=== PATIENT | female | born 1955 ===

== ENCOUNTER 2020-01-16 08:14 | Outpatient (REF) | payer OTHER, SELFPAY ==
--- NOTE | 2020-01-16 | MM_ITS ---
EXAMINATION: MM SCREENING DIGITAL BREAST TOMOSYNTHESIS, BILATERAL CLINICAL INFORMATION: Screening. Asymptomatic. Family history breast cancer in paternal grandmother. The lifetime risk of breast cancer based on the Tyrer-Cuzick Model is 6%. COMPARISON: Mammography: 01/10/2019, 10/30/2008 TECHNIQUE: Digital breast tomosynthesis is performed in both the craniocaudal and mediolateral oblique views along with computer-aided detection (CAD). Synthesized 2D images are generated from the tomosynthesis. FINDINGS: There are scattered areas of fibroglandular density (ACR BI-RADS breast composition Category b). There are no significant masses, abnormal calcifications, or other abnormalities. Parenchymal pattern is similar to prior studies. No significant changes. IMPRESSION: No mammographic evidence of malignancy. ASSESSMENT: BI-RADS 1: Negative RECOMMENDATION: Routine annual mammography screening. This patient's information was entered into a reminder system with a target due date for their next mammogram.
== END 2020-01-16 08:15 | disposition home or self-care (01) ==
LOC: HO.MAMMO 08:14
PROVIDERS: PCP Internal Medicine; Visit Provider Internal Medicine
DX: Z12.31 Encounter for screening mammogram for malignant neoplasm of breast (principal)
CPT/HCPCS: 77063; 77067

== ENCOUNTER 2020-01-26 08:04 | Outpatient (REF) | payer OTHER, SELFPAY ==
--- NOTE | 2020-01-26 08:08 | MM_ITS ---
EXAMINATION: BONE DENSITOMETRY CLINICAL INDICATION: Menopausal state. COMPARISON: This is the patient's baseline examination. TECHNIQUE: Using a Innov[employer] DXA System (software version: 13.1) manufactured by [employer], dual-energy x-ray absorptiometry was performed of the lumbar spine and left hip. The images are of good technical quality. Summary results are attached. FINDINGS: AP SPINE L1-L4: BMD 0.934 g/cm2, Z-score -0.4, T-score -2.1, osteopenia. LEFT FEMUR, NECK: BMD 0.682 g/cm2, Z-score -1.0, T-score -2.6, osteoporosis. LEFT FEMUR, TOTAL: BMD 0.756 g/cm2, Z-score -0.7, T-score -2.0, osteopenia. IDENTIFIED RISK FACTORS: Height loss. Secondary osteoporosis (early menopause). Hysterectomy. HISTORY OF FRACTURE: None listed. MEDICATIONS: None listed. MM/XR DEXA axial skeleton IMPRESSION: 1. DIAGNOSIS: Osteoporosis based on the lowest T-score value of -2.6 in the femoral neck applying World Health Organization criteria. 2. 10-YEAR FRACTURE RISK PREDICTION, FRAX: Major osteoporotic fracture (clinical spine, forearm, hip or shoulder) 13.5%. Hip fracture 3.0%. 3. Treatment Recommendations: NOF guidelines recommend consideration for treatment in postmenopausal women and men age 50 and older presenting with the following: -A hip or vertebral (clinical or morphometric) fracture. -T-score less than or equal to -2.5 at the femoral neck or spine after appropriate evaluation to exclude secondary causes. -Low bone mass at the hip or spine and a 10-year fracture probability by FRAX of greater than or equal to 3% for hip fracture or greater than or equal to 20% for major osteoporotic fracture based on the [place] adapted WHO algorithm. 4. Other Recommendations: All treatment decisions require clinical judgment and consideration of individual patient factors, including patient preferences, comorbidities, previous drug use, risk factors not captured in the FRAX model (e.g. frailty, falls, vitamin D deficiency, increased bone turnover, interval significant decline in bone density) and possible under or overestimation of fracture risk by FRAX. Additional medical evaluation for secondary cause of low bone mineral density may be appropriate. FUTURE SCAN RECOMMENDATION: People with diagnosed cases of osteoporosis or at high risk for fracture should have regular bone mineral density tests. For patients eligible for Medicare, routine testing is allowed once every 2 years. The testing frequency can be increased to one year for patients who have rapidly progressing disease, those who are receiving or discontinuing medical therapy to restore bone mass, or have additional risk factors.
== END 2020-01-26 08:05 | disposition home or self-care (01) ==
LOC: HO.MAMMO 08:04
PROVIDERS: PCP Internal Medicine; Visit Provider Internal Medicine
DX: Z78.0 Asymptomatic menopausal state (principal)
CPT/HCPCS: 77080

== ENCOUNTER 2020-11-22 12:05 | Outpatient (REF) | payer MEDICARE, MEDICAID, SELFPAY ==
[2020-11-22 14:05] LABS: Hematocrit 34.5 % (37-47); Mean Corpuscular HGB Conc 31.9 g/dl (31.0-35.0); Mean Corpuscular Volume 87.8 fL (80-98); Mean Platelet Volume 9.4 fL (9.4-12.3); Platelet Count 401 X10*3/uL (160-400); Red Blood Count 3.93 X10*6/uL (4.20-5.50); White Blood Count 12.3 X10*3/uL (4.8-10.8)
[2020-11-22 14:26] LABS: Alanine Aminotransferase 11 U/L (0-31); Albumin Level 3.5 g/dL (3.5-5.0); Alkaline Phosphatase 139 U/L (39-117); Anion Gap 12 (12-20); Aspartate Amino Transferase 15 U/L (5-31); Bilirubin Total 0.4 mg/dL (0.0-1.0); Blood Urea Nitrogen 5 mg/dL (9-16); Calcium 8.5 mg/dL (8.4-10.2); Carbon Dioxide 29 mmol/L (22-29); Chloride 102 mmol/L (96-108); Estimated Glomerular Filt Rate > 60; Glucose Random 88 mg/dL (60-115); Potassium 3.5 mmol/L (3.3-5.1); Sodium 139 mmol/L (135-145); Total Protein 6.2 g/dL (6.5-8.0)
[2020-11-22 14:46] LABS: Erythrocyte Sedimentation Rate 17 MM/HR (0-20)
[2020-11-22 14:50] LABS: CDiff Gene PCR NEGATIVE (Negative)
== END 2020-11-22 12:06 | disposition home or self-care (01) ==
LOC: HO.HMGCLDS 12:05
PROVIDERS: Hospitalist; PCP Internal Medicine; Visit Provider Internal Medicine
DX: K21.9 Gastro-esophageal reflux disease without esophagitis (principal); K52.1 Toxic gastroenteritis and colitis; T36.95XA Adverse effect of unspecified systemic antibiotic, initial encounter
CPT/HCPCS: 36415; 80053; 85027; 85652; 87493

== ENCOUNTER 2020-12-20 08:39 | Outpatient (REF) | payer MEDICARE, MEDICAID, SELFPAY ==
[2020-12-20 12:04] LABS: Cholesterol 144 mg/dL; HDL Cholesterol 62 mg/dL; LDL Cholesterol Calculated 62 mg/dl; Triglycerides 102 mg/dL
== END 2020-12-20 08:40 | disposition home or self-care (01) ==
LOC: HO.HMGCLDS 08:39
PROVIDERS: PCP Internal Medicine; Visit Provider Internal Medicine
DX: Z00.00 Encounter for general adult medical examination without abnormal findings (principal)
CPT/HCPCS: 36415; 80061; 84443

== ENCOUNTER 2021-01-30 11:00 | Outpatient (RCR) | payer MEDICARE, MEDICAID, SELFPAY | END 2021-01-30 13:14 | disposition home or self-care (01) | LOC: HO.PTCHIC 11:00 | PROVIDERS: PCP Internal Medicine; Visit Provider Physician Assistant | DX: Z96.651 Presence of right artificial knee joint (principal) | CPT/HCPCS: 97110; 97112; 97140; 97161 ==

== ENCOUNTER 2021-11-28 15:00 | Outpatient (RCR) | payer MEDICARE, MEDICAID, SELFPAY ==
--- NOTE | 2021-11-28 16:07 | MHC.PT.DC ---
[facility] [place] Office [place] Office [place] Office [address] Pavel Ramirez [address] [phone] F: [phone] F: [phone] F: [phone] F: [phone] Physical Therapy Discharge Report Diagnosis: This is a 66 yo female presenting to skilled PT with a script for R foot/ankle pain, plantar fasciitis Date of Surgery: Date of Evaluation: 10/11/21 Date of Discharge: 11/28/21 Treatments to Date: 12 Cancellations to Date: 0 No Shows to Date: 0 Discharge Status: Achieved Goals Improved Function Independent with HEP Discharge Summary: Patient is doing well, demos improved ROM and strength. She demos improved pain, improved gait pattern and has invested in a good new pair of shoes. She has a thorough HEP to continue on her own and is I in her program. She is appropriate for DC at this time. Educated to call office if anything changes. Electronically signed by: Jazmine Naylor PT Please sign and return to therapist. Thank you for your referral.
== END 2021-11-28 16:07 | disposition home or self-care (01) ==
LOC: HO.PTCHIC 15:00
PROVIDERS: PCP Nurse Practitioner Family; Visit Provider Orthopaedic Surgery
DX: M79.671 Pain in right foot (principal); M72.2 Plantar fascial fibromatosis
CPT/HCPCS: 97035; 97110; 97140; 97161; 97162

== ENCOUNTER 2022-10-27 09:11 | Outpatient (AMB) | payer MEDICARE, SELFPAY ==
--- NOTE | 2022-10-27 09:36 | MHC.PC.OV ---
Vital Signs 10/27/22 09:39 Height 5 ft Weight 176 lb 2 oz BMI 34.4 BP 132/88 Blood Pressure Location Rt brachial Position Sitting Pulse 59 Pulse Source Pulse Oximeter Pulse Oximetry (%) 95 Oxygen Delivery Method Room Air Intake Visit Reasons: Ear ache, sore throat, congestion, cough Allergies No Known Allergies [No Known Allergies*] Allergy (Verified 10/27/22 09:37) Medication List - Last Reconciled 10/27/22 by Sandy Storm MD albuterol sulfate 90 mcg/actuation 2 puffs inhalation Q6H PRN amoxicillin-pot clavulanate 875-125 mg 1 tab PO BID benzonatate 100 mg PO TID biotin 10 mg PO DAILY omeprazole 20 mg PO BID Tobacco use date assessed: 10/27/22 Fall risk assessment: No Falls in past year Last assessed Fall Risk: 10/27/22 Dental Screening Dental Screen Date: 10/27/22 Did you have a dental visit in the last 12 months?: Yes Did you have a dental problem in the last 6 months where you did not have access to dental care?: No Was dental information given to patient?: No HPI Ear ache, sore throat, congestion, cough HPI Details Pt c/o chest congestion, intermittent wheezing, nonproductive cough, sore throat and right ear pain for 2 weeks. Patient denies fever chills shortness of breath. [facility] Medical History (Updated 10/27/22 @ 10:14 by Sandy Storm MD) Annual physical exam Chronic back pain Mild intermittent asthma without complication Skin cancer Surgical History H/O colonoscopy S/P knee replacement Family History Father No problems noted. Mother Diabetes Social History Housing: House Patient Tobacco Use Status: Never used Tobacco e-Cigarette/Vaping Use: Never Used Current occupational status: retired Cognitive needs: No Hearing needs: No Vision needs: No Questionnaire Thrive Questionnaire Date Thrive assessed: 12/23/21 AUDIT C Alcohol Use Questionnaire (AUDIT-C) 1. How often do you have a drink containing alcohol?: Never 3. How often do you have six or more drinks on one occasion?: Never Total Score: 0 Score Reviewed/Action Taken: Yes MAJO-7 AMB Questionnaire MAJO-7 Date MAJO - 7 assessed: 12/23/21 Source: Developed by Drs. Wicho Mendez, Tessa Dukes, Tim Aburto and colleagues, with an educational hermilo from [employer]. Review of Systems Const All systems reviewed & are unremarkable except as noted in HPI and below Eyes Reports no additional complaints ENT Reports no additional complaints Card Reports no additional complaints Resp Reports no additional complaints GI Reports no additional complaints Physical exam (Primary Care) Vital Signs: Last Vital Signs Pulse 59 10/27/22 09:39 BP 132/88 10/27/22 09:39 Pulse Ox 95 10/27/22 09:39 Oxygen Delivery Method Room Air 10/27/22 09:39 BMI result Body Mass Index 34.4 Tobacco/Smoking Status: Tobacco use Status Tobacco use date assessed 10/27/22 10/27/22 09:39 Patient Tobacco Use Status Never used Tobacco 10/27/22 09:39 e-Cigarette/Vaping Use Never Used 10/27/22 09:39 Thrive Assessment: Date of Thrive Assessment Date Thrive assessed 12/23/21 10/27/22 09:39 Const General: well developed HENMT Head: Yes normal to inspection Ears: hearing grossly normal bilaterally and TM's normal bilaterally Face and sinus: Yes normal facial exam Throat: Yes postnasal drainage Eyes General: appearance normal, both eyes and all related structures Neck Neck: Yes lymphadenopathy (R submandibular) Resp Effort & Inspection: normal respiratory effort Auscultation: wheezes and diminished lung sounds Cardio Rhythm: regular rhythm Heart sounds: S1 normal heart sound present Assessment and Plan Assessment & Plan (1) Annual physical exam: Code(s): Z00.00 - Encounter for general adult medical examination without abnormal findings Plan: schedule PE in Nov (2) Chronic diarrhea: Comment: f/u GI Dr. Mcdowell , negative colonoscopy 12/19 Code(s): K52.9 - Noninfective gastroenteritis and colitis, unspecified (3) GERD (gastroesophageal reflux disease): Code(s): K21.9 - Gastro-esophageal reflux disease without esophagitis (4) Bronchitis: Code(s): J40 - Bronchitis, not specified as acute or chronic Plan: Augmentin for 1 week and Tessalon pearls (5) Mild intermittent asthma without complication: Code(s): J45.20 - Mild intermittent asthma, uncomplicated Plan: start Breo and Albuterol prn, f/u in 1 -2 months Orders: Orders Comprehensive [place]. Panel Fast Today K21.9 - Gastro-esophageal reflux disease without esophagitis, K52.9 - Noninfective gastroenteritis and colitis, unspecified, Z00.00 - Encounter for general adult medical examination without abnormal findings Complete Blood Count Auto Diff Today K21.9 - Gastro-esophageal reflux disease without esophagitis, K52.9 - Noninfective gastroenteritis and colitis, unspecified, Z00.00 - Encounter for general adult medical examination without abnormal findings Lipid Panel Today K21.9 - Gastro-esophageal reflux disease without esophagitis, K52.9 - Noninfective gastroenteritis and colitis, unspecified, Z00.00 - Encounter for general adult medical examination without abnormal findings TSH reflex Free T4 Today K21.9 - Gastro-esophageal reflux disease without esophagitis, K52.9 - Noninfective gastroenteritis and colitis, unspecified, Z00.00 - Encounter for general adult medical examination without abnormal findings Vitamin D 25-OH Total Today K21.9 - Gastro-esophageal reflux disease without esophagitis, K52.9 - Noninfective gastroenteritis and colitis, unspecified, Z00.00 - Encounter for general adult medical examination without abnormal findings Medications: New amoxicillin-pot clavulanate 875-125 mg 1 tab PO BID 14 tabs 0RF benzonatate 100 mg PO TID 21 caps 0RF albuterol sulfate 90 mcg/actuation 2 puffs inhalation Q6H PRN 6.7 grams 1RF shortness of breath or wheezing fluticasone furoate-vilanterol 100-25 mcg/dose (Breo Ellipta) 1 inh inhalation DAILY 60 ea 1RF Coding Level of Care Code Est Pt Level 3 (01481) Diagnoses Annual physical exam Z00.00 Chronic diarrhea K52.9 GERD (gastroesophageal reflux disease) K21.9 Bronchitis J40 Mild intermittent asthma without complication J45.20
[2022-10-27 09:39] VITALS: BP 132/88; PULSE 59; O2SAT 95; BMI 34.4
== END 2022-10-27 10:14 | disposition home or self-care (01) ==
PROVIDERS: PCP Internal Medicine; Visit Provider Internal Medicine
DX: K52.9 Noninfective gastroenteritis and colitis, unspecified (principal); K21.9 Gastro-esophageal reflux disease without esophagitis; J40 Bronchitis, not specified as acute or chronic; J45.20 Mild intermittent asthma, uncomplicated
CPT/HCPCS: 99213

== ENCOUNTER 2022-10-27 10:10 | Outpatient (REF) | payer MEDICARE, MEDICAID, SELFPAY ==
[2022-10-27 13:34] LABS: MANUAL DIFF FLAG NO
[2022-10-27 13:53] LABS: Basophils Percent Auto 0.1 % (0-2); Eosinophils Absolute Auto 0.1 X10*3/uL (0.0-0.4); Eosinophils Percent Auto 0.9 % (0-4); Hematocrit 36.7 % (37.0-47.0); Hemoglobin 11.5 g/dl (12.0-16.0); Imm Gran Abs Auto 0.02 X10*3/uL (0.00-0.03); Imm Gran Pct Auto 0.3 % (0.0-0.4); Lymphocytes Absolute Auto 2.8 X10*3/uL (1.2-4.9); Lymphocytes Percent Auto 37.3 % (20-40); Mean Corpuscular HGB Conc 31.3 g/dl (31.0-35.0); Mean Corpuscular Hemoglobin 27.8 pg (27.0-33.0); Mean Corpuscular Volume 88.9 fL (80.0-98.0); Monocytes Absolute Auto 0.6 X10*3/uL (0.1-1.2); Neutrophils Percent Auto 53.4 % (45-73); Platelet Count 455 X10*3/uL (160-400); Red Blood Count 4.13 X10*6/uL (4.20-5.50); Red Cell Distribution Width 14.7 % (11.0-16.0); White Blood Count 7.5 X10*3/uL (4.8-10.8)
[2022-10-27 15:02] LABS: Alanine Aminotransferase 21 U/L (0-31); Albumin Level 3.9 g/dL (3.5-5.0); Alkaline Phosphatase 98 U/L (39-117); Anion Gap 13 (12-20); Aspartate Amino Transferase 21 U/L (5-31); Bilirubin Total 0.5 mg/dL (0.0-1.0); Blood Urea Nitrogen 10 mg/dL (9-16); Calcium 9.5 mg/dL (8.4-10.2); Carbon Dioxide 25 mmol/L (22-29); Chloride 106 mmol/L (96-108); Cholesterol 211 mg/dL; Estimated Glomerular Filt Rate > 60; Glucose Fasting 93 mg/dL (60-99); HDL Cholesterol 80 mg/dL; LDL Cholesterol Calculated 106 mg/dl; Potassium 4.3 mmol/L (3.3-5.1); Sodium 140 mmol/L (135-145); TSH reflex Free T4 3.16 uIU/mL (0.32-4.0); Total Protein 6.8 g/dL (6.5-8.0); Triglycerides 127 mg/dL; Vitamin D 25-OH Total 30.5 ng/mL (>30)
== END 2022-10-27 10:11 | disposition home or self-care (01) ==
LOC: HO.HMGCLDS 10:10
PROVIDERS: PCP Internal Medicine; Visit Provider Internal Medicine
DX: Z00.00 Encounter for general adult medical examination without abnormal findings (principal); K52.9 Noninfective gastroenteritis and colitis, unspecified; K21.9 Gastro-esophageal reflux disease without esophagitis
CPT/HCPCS: 36415; 80053; 80061; 82306; 84443; 85025

== ENCOUNTER 2022-12-16 12:01 | Outpatient (AMB) | payer MEDICARE, SELFPAY ==
--- NOTE | 2022-12-16 12:05 | A.OFFPC_ITS ---
Vital Signs 12/16/22 12:06 Height 5 ft Weight 183 lb BMI 35.7 BP 140/90 H Blood Pressure Location Lt brachial Position Sitting Pulse 70 Pulse Source Pulse Oximeter Pulse Oximetry (%) 97 Oxygen Delivery Method Room Air Intake Visit Reasons: annual PE Allergies No Known Allergies [No Known Allergies*] Allergy (Verified 12/16/22 12:08) Medication List - Last Reconciled 12/16/22 by Sandy Storm MD albuterol sulfate 90 mcg/actuation 2 puffs inhalation Q6H PRN biotin 10 mg PO DAILY cholecalciferol (vitamin D3) 50 mcg PO DAILY fluticasone furoate-vilanterol 100-25 mcg/dose (Breo Ellipta) 1 inh inhalation DAILY omeprazole 20 mg PO BID Tobacco use date assessed: 12/16/22 Fall risk assessment: No Falls in past year Last assessed Fall Risk: 12/16/22 Dental Screening Dental Screen Date: 12/16/22 Did you have a dental visit in the last 12 months?: Yes Did you have a dental problem in the last 6 months where you did not have access to dental care?: No Was dental information given to patient?: Patient has dentist HPI annual PE HPI Details Pt presents for PE. Patient was diagnosed with colitis and follows up with Dr. Jeremias DUGAN. [facility] Medical History (Updated 12/16/22 @ 13:05 by Sandy Storm MD) Skin cancer Chronic back pain Annual physical exam Mild intermittent asthma without complication Surgical History S/P knee replacement H/O colonoscopy Family History Father No problems noted. Mother Diabetes Social History Housing: House Patient Tobacco Use Status: Never used Tobacco e-Cigarette/Vaping Use: Never Used Current occupational status: retired Cognitive needs: No Hearing needs: No Vision needs: No Questionnaire Thrive Questionnaire Date Thrive assessed: 12/23/21 MAJO-7 AMB Questionnaire MAJO-7 Date MAJO - 7 assessed: 12/23/21 Source: Developed by Drs. Wicho Mendez, Tessa Dukes, Tim Aburto and colleagues, with an educational hermilo from [employer]. Review of Systems Const All systems reviewed & are unremarkable except as noted in HPI and below Reports no additional complaints Eyes Reports no additional complaints ENT Reports no additional complaints Card Reports no additional complaints Resp Reports no additional complaints GI Reports no additional complaints Reports no additional complaints Physical exam (Primary Care) Vital Signs: Last Vital Signs Pulse 70 12/16/22 12:06 BP 158/90 H 12/16/22 12:06 Pulse Ox 97 12/16/22 12:06 Oxygen Delivery Method Room Air 12/16/22 12:06 BMI result Body Mass Index 35.7 Tobacco/Smoking Status: Tobacco use Status Tobacco use date assessed 12/16/22 12/16/22 12:10 Patient Tobacco Use Status Never used Tobacco 12/16/22 12:07 e-Cigarette/Vaping Use Never Used 12/16/22 12:07 Thrive Assessment: Date of Thrive Assessment Date Thrive assessed 12/23/21 12/16/22 12:07 Const General: no acute distress HENMT Head: Yes normal to inspection Ears: hearing grossly normal bilaterally General nose exam: Normal external nose present Face and sinus: Yes normal facial exam Mouth: Normal oral and palatal mucosa present Throat: Yes posterior oropharynx normal Eyes General: appearance normal, both eyes and all related structures Neck Neck: Yes no lymphadenopathy and Yes supple Resp Effort & Inspection: normal respiratory effort Auscultation: clear to auscultation bilaterally Cardio Rhythm: regular rhythm Heart sounds: S1 normal heart sound present and S2 normal heart sound present GI Inspection: Yes normal to inspection Palpation (GI): Soft to palpation Percussion: Yes normal to percussion Auscultation: normal bowel sounds Assessment and Plan Assessment & Plan (1) Mild intermittent asthma without complication: Code(s): J45.20 - Mild intermittent asthma, uncomplicated Plan: Continue Breo and albuterol p.r.n. (2) Chronic diarrhea: Comment: f/u GI Dr. Mcdowell , negative colonoscopy 12/19, colitis dxd 2022 Code(s): K52.9 - Noninfective gastroenteritis and colitis, unspecified Plan: Follow-up with GI (3) Annual physical exam: Code(s): Z00.00 - Encounter for general adult medical examination without abnormal findings Plan: Well-balanced diet and regular physical activity discussed with the patient. Mammogram and DEXA will be scheduled (4) Postmenopausal: Comment: DEXA 2020 T score-2.8 Code(s): Z78.0 - Asymptomatic menopausal state Plan: Continue vitamin-D supplement and recheck DEXA (5) Elevated BP without diagnosis of hypertension: Code(s): R03.0 - Elevated blood-pressure reading, without diagnosis of hypertension Plan: Low sodium diet increase physical activity discussed with the patient , follow- up for blood pressure check in 1 month Orders: Orders MM screening mammo BI Today Z12.31 - Encounter for screening mammogram for malignant neoplasm of breast XR DEXA axial skeleton Today Z78.0 - Asymptomatic menopausal state Medications: New cholecalciferol (vitamin D3) 50 mcg PO DAILY 90 tabs 3RF Refilled omeprazole 20 mg PO BID 180 caps 3RF K21.9 - Gastro-esophageal reflux disease without esophagitis Coding Level of Care Code Est Pt Prev Care >65y(11069) Diagnoses Mild intermittent asthma without complication J45.20 Chronic diarrhea K52.9 Annual physical exam Z00.00 Postmenopausal Z78.0 Elevated BP without diagnosis of hypertension R03.0
[2022-12-16 12:06] VITALS: BP 140/90; PULSE 70; O2SAT 97; BMI 35.7
== END 2022-12-16 13:06 | disposition home or self-care (01) ==
PROVIDERS: PCP Internal Medicine; Visit Provider Internal Medicine
DX: Z00.00 Encounter for general adult medical examination without abnormal findings (principal); J45.20 Mild intermittent asthma, uncomplicated; K52.9 Noninfective gastroenteritis and colitis, unspecified; Z78.0 Asymptomatic menopausal state; R03.0 Elevated blood-pressure reading, without diagnosis of hypertension
CPT/HCPCS: 99397

== ENCOUNTER 2023-01-15 10:13 | Outpatient (AMB) | payer MEDICARE, MEDICAID, SELFPAY ==
--- NOTE | 2023-01-15 10:15 | MHC.PC.OV ---
Vital Signs 01/15/23 10:16 Height 5 ft Weight 184 lb BMI 35.9 BP 146/80 H Blood Pressure Location Lt brachial Position Sitting Pulse 55 Pulse Source Pulse Oximeter Pulse Oximetry (%) 98 Oxygen Delivery Method Room Air Intake Visit Reasons: 1 Month follow up Intake Note: Pt is here today for 1 month follow up visit. Allergies No Known Allergies [No Known Allergies*] Allergy (Verified 01/15/23 10:17) Medication List - Last Reconciled 01/15/23 by Sandy Storm MD albuterol sulfate 90 mcg/actuation 2 puffs inhalation Q6H PRN biotin 10 mg PO DAILY cholecalciferol (vitamin D3) 50 mcg PO DAILY fluticasone furoate-vilanterol 100-25 mcg/dose (Breo Ellipta) 1 inh inhalation DAILY omeprazole 20 mg PO BID Tobacco use date assessed: 12/16/22 HPI 1 Month follow up HPI Details Patient presents for the follow-up complaining of increased wheezing and chest tightness worse with the exertion for the last few weeks. She denies PND orthopnea cough fever chills chest pains or palpitations. [facility] Medical History Skin cancer Chronic back pain Annual physical exam Mild intermittent asthma without complication Surgical History S/P knee replacement H/O colonoscopy Family History Father No problems noted. Mother Diabetes Social History Housing: House Patient Tobacco Use Status: Never used Tobacco e-Cigarette/Vaping Use: Never Used Current occupational status: retired Cognitive needs: No Hearing needs: No Vision needs: No Questionnaire Thrive Questionnaire Date Thrive assessed: 12/23/21 MAJO-7 AMB Questionnaire MAJO-7 Date MAJO - 7 assessed: 12/23/21 Source: Developed by Drs. Wicho Mendez, Tessa Dukes, Tim Aburto and colleagues, with an educational hermilo from [employer] Review of Systems Const All systems reviewed & are unremarkable except as noted in HPI and below Reports no additional complaints Eyes Reports no additional complaints ENT Reports no additional complaints Card Reports no additional complaints Resp Reports no additional complaints GI Reports no additional complaints Physical exam (Primary Care) Vital Signs: Last Vital Signs Pulse 55 01/15/23 10:16 BP 146/80 H 01/15/23 10:16 Pulse Ox 98 01/15/23 10:16 Oxygen Delivery Method Room Air 01/15/23 10:16 BMI result Body Mass Index 35.9 Tobacco/Smoking Status: Tobacco use Status Tobacco use date assessed 12/16/22 01/15/23 10:20 Patient Tobacco Use Status Never used Tobacco 01/15/23 10:20 e-Cigarette/Vaping Use Never Used 01/15/23 10:20 Thrive Assessment: Date of Thrive Assessment Date Thrive assessed 12/23/21 01/15/23 10:20 Const General: no acute distress HENMT Ears: hearing grossly normal bilaterally Resp Effort & Inspection: normal respiratory effort Auscultation: wheezes and diminished lung sounds Cardio Rate: bradycardic Rhythm: regular rhythm Heart sounds: S1 normal heart sound present and S2 normal heart sound present Office Procedures Nebulizer Treatment Nebulizer Treatment [id number] RX initial, or Nebulizer Subsequent Treatment Office Meds albuterol sulfate 2.5 mg/3 mL (0.083 %) solution for nebulization Performing Provider: Sandy Storm MD Performing Location: [facility] Administered by: Asia Cota RN on 01/15/23 11:12 Dose Route Admin Location Dispensed Lot Number Expiration Date [employer] Coordinator 2.5 mg inhalation Rm 3 3 mL [id number] 06/26/24 [id number] Cube Route Comments: Pt familiar with use of nebulizer. Assessment and Plan Assessment & Plan (1) Asthma: Code(s): J45.909 - Unspecified asthma, uncomplicated Plan: Increase Breo to 200 and add montelukast and albuterol via nebulizer, follow-up in 1 month (2) Bradycardia: Code(s): R00.1 - Bradycardia, unspecified Plan: EKG showed sinus bradycardia T-wave inversions in V2 through V4, no ST-T elevations. Obtain Holter monitor and echocardiogram to evaluate for segmental wall motion abnormalities Orders: Orders AMB Nebulizer Treatment Today J40 - Bronchitis, not specified as acute or chronic CA echo transthoracic complete Today R00.1 - Bradycardia, unspecified, R06.09 - Other forms of dyspnea ECG holter monitor 48 hour Today R00.1 - Bradycardia, unspecified, R06.09 - Other forms of dyspnea Medications: New albuterol sulfate 1.25 mg (3 mL) inhalation QID PRN 90 mL 3RF shortness of breath or wheezing montelukast 10 mg PO DAILY 90 tabs 1RF fluticasone furoate-vilanterol 200-25 mcg/dose (Breo Ellipta) 1 inh inhalation DAILY 60 ea 3RF nebulizers As directed 1 ea 0RF Coding Level of Care Code Est Pt Level 4 (05590) Diagnoses Asthma J45.909 Bradycardia R00.1 CPT Codes Nebulizer Treatment - Nebulizer Treatment, initial or subsequent: [id number] RX initial, or Nebulizer Subsequent Treatment ([id number])
[2023-01-15 10:16] VITALS: BP 146/80; PULSE 55; O2SAT 98; BMI 35.9
== END 2023-01-15 11:44 | disposition home or self-care (01) ==
PROVIDERS: PCP Internal Medicine; Visit Provider Internal Medicine
DX: J45.909 Unspecified asthma, uncomplicated (principal); R00.1 Bradycardia, unspecified; J40 Bronchitis, not specified as acute or chronic
CPT/HCPCS: 94640; 99214; J7613

== ENCOUNTER 2023-02-10 08:05 | Outpatient (REF) | payer MEDICARE, MEDICAID, SELFPAY ==
--- NOTE | ~2023-02-10 | MM_ITS ---
EXAMINATION: BONE DENSITOMETRY CLINICAL INDICATION: Menopause. COMPARISON: Baseline BD dated 01/26/2020. TECHNIQUE: Using a [employer] DXA System (software version: 13.1) manufactured by [employer], dual-energy x-ray absorptiometry was performed of the lumbar spine and left hip. The images are of good technical quality. Summary results are attached. FINDINGS: AP SPINE L1-L3 (excluding L4): The data of L1-L4 has been changed to exclude the L4 vertebral body, because increased sclerosis at this level may cause overestimation of lumbar spine density. Current: BMD 0.770 g/cm2, Z-score -2.3, T-score -3.3, osteoporosis, 16.1% decrease from baseline (<5% change is not significant). Baseline: BMD 0.918 g/cm2. LEFT FEMUR, NECK: Current: BMD 0.670 g/cm2, Z-score -1.4, T-score -2.6, osteoporosis. Baseline: BMD 0.682 g/cm2. LEFT FEMUR, TOTAL: Current: BMD 0.775 g/cm2, Z-score -0.9, T-score -1.8, osteopenia, 2.5% increase from baseline (<5% change is not significant). Baseline: BMD 0.756 g/cm2. IDENTIFIED RISK FACTORS: Early menopause, glucocorticoids (chronic), height loss, hysterectomy, secondary osteoporosis (intestinal or bowel disease, partial gastrectomy). HISTORY OF FRACTURE: None listed. MEDICATIONS: None listed. MM/XR DEXA axial skeleton IMPRESSION: 1. DIAGNOSIS: Osteoporosis based on the lowest T-score value of -3.3 in the lumbar spine applying World Health Organization criteria. 2. 10-YEAR FRACTURE RISK PREDICTION, FRAX: According to the guidelines, FRAX calculation should only be performed on patients in the osteopenia bone density category. Therefore, FRAX was not performed on this patient. 3. Treatment Recommendations: NOF guidelines recommend consideration for treatment in postmenopausal women and men age 50 and older presenting with the following: -A hip or vertebral (clinical or morphometric) fracture. -T-score less than or equal to -2.5 at the femoral neck or spine after appropriate evaluation to exclude secondary causes. -Low bone mass at the hip or spine and a 10-year fracture probability by FRAX of greater than or equal to 3% for hip fracture or greater than or equal to 20% for major osteoporotic fracture based on the [place] adapted WHO algorithm. 4. Other Recommendations: All treatment decisions require clinical judgment and consideration of individual patient factors, including patient preferences, comorbidities, previous drug use, risk factors not captured in the FRAX model (e.g. frailty, falls, vitamin D deficiency, increased bone turnover, interval significant decline in bone density) and possible under or overestimation of fracture risk by FRAX. Additional medical evaluation for secondary cause of low bone mineral density may be appropriate. FUTURE SCAN RECOMMENDATION: People with diagnosed cases of osteoporosis or at high risk for fracture should have regular bone mineral density tests. For patients eligible for Medicare, routine testing is allowed once every 2 years. The testing frequency can be increased to one year for patients who have rapidly progressing disease, those who are receiving or discontinuing medical therapy to restore bone mass, or have additional risk factors.
== END 2023-02-10 08:06 | disposition home or self-care (01) ==
LOC: HO.MAMMO 08:05
PROVIDERS: PCP Internal Medicine; Visit Provider Internal Medicine
DX: Z12.31 Encounter for screening mammogram for malignant neoplasm of breast (principal); Z13.820 Encounter for screening for osteoporosis; Z78.0 Asymptomatic menopausal state
CPT/HCPCS: 77063; 77067; 77080

== ENCOUNTER → 2023-02-10 08:30 | Outpatient (BNV) | payer MEDICARE, MEDICAID, SELFPAY | PROVIDERS: PCP Internal Medicine; Visit Provider Radiology Diagnostic Radiology | DX: Z12.31 Encounter for screening mammogram for malignant neoplasm of breast (principal) | CPT/HCPCS: 77063; 77067 ==

== ENCOUNTER → 2023-02-12 13:52 | Outpatient (REF) | payer MEDICARE, MEDICAID, SELFPAY ==
--- NOTE | 2023-02-12 13:55 | HM_ITS ---
Conclusion: 1. Patient was monitored for total period of 2 days 2. Baseline was normal sinus rhythm with average heart of 69 beats per minute 3. Occasional PACs noted with total burden of 0.3% with 24 supraventricular ectopic run fastest at 170 beats per minute and the longest of 12 beats 4. No patient reported events MTDD
--- NOTE | 2023-02-12 13:55 | CA_ITS ---
Transthoracic Echocardiogram Patient (Last, First, Middle): Cielo Roe, Gender: Female Date of : 1955 Age: 67 Procedure Date: 02/12/2023 Procedure Type: Transthoracic Echocardiogram Location: OP Height: 154.94 cm Weight: 81.65 kg BSA: 1.81 m2 Heart Rate: bpm BP: 128 / 78 mmHg Assistant News Director: MINDY Referring MD: Sandy Storm MD Symptoms: R06.09 - Other forms of dyspnea Study Quality: Adequate ECG Rhythm: Sinus Conclusions: - The left ventricular systolic function is hyperdynamic. The calculated ejection fraction is 71% by biplane method. - No obvious valvular pathology seen on this study. Findings Left Ventricle Normal left ventricular cavity size. There is normal left ventricular wall thickness. The left ventricular systolic function is hyperdynamic. The calculated ejection fraction is 71% by biplane method. There is no evidence of regional wall motion abnormalities. LV peak GLS -19.8%. Right Ventricle Normal right ventricular cavity size and systolic function. Atria Both atria are normal in size. Aortic Valve There is a normal trileaflet aortic valve. There is no aortic valve stenosis. There is no aortic valve regurgitation. Mitral Valve The mitral valve appears normal. There is trace mitral valve regurgitation. There is no mitral valve stenosis. Pulmonic Valve The pulmonic valve is likely normal. Tricuspid Valve There is trace tricuspid valve regurgitation. There is no evidence of pulmonary hypertension. Great Vessels The asc aorta is normal in size. Venous The inferior vena cava is normal in size and collapses less than 50% with inspiration. Pericardium/Pleural There is no evidence of pericardial effusion. Prior Study Comparison No prior study available for comparison. Recommendations, Care & Conclusions No obvious valvular pathology seen on this study. Measurements 2D Linear Measurements IVSd: 0.91 0.6-0.9/0.6-1.0 cm LVIDd: 4.73 3.9-5.3/4.2-5.9 cm LVIDd Index: 2.61 2.4-3.2/2.2-3.1 cm/m2 LVIDs: 2.94 2.0-3.6 cm LVPWd: 0.92 0.7-1.1 cm LA Diam: 3.50 2.7-3.8/3.0-4.0 cm LAIDs Index: 1.93 1.5-2.3 cm/m2 LV Mass: 182.60 67-162/88-224 g LV Mass Index: 100.88 43-95/49-115 g/m2 LVOT Diam: 1.90 3.0+(-)1.3 cm 2D Systolic Function EF 4C: 67.70 >55% EF 2C: 69.20 >55% EF BiP: 70.50 >55% Mitral Valve MV Pk E: 1.00 MV PK A: 0.96 MV Decel Time: 246.00 E/A: 1.00 E'Lateral: 7.40 E'Medial: 6.64 E/E' Med: 15.10 E/E' Lat: 13.50 PHT: 72.00 MVA PHT: 3.06 Decel [place]: 4.06 Aortic Valve AoV Pk [place]: 2.33 AoV Mn [place]: 1.38 AoV VTI: 0.48 AoV Pk Grad: 22.00 Aov Mn Grad: 9.00 MARRY Cont.VTI: 1.96 LVOT LVOT Pk [place]: 1.39 LVOT Mn [place]: 0.91 LVOT VTI: 0.33 LVOT Pk Grad: 8.00 LVOT Mn Grad: 4.00 LVOT Diam: 1.90 LVOT Area: 2.84 Diastolic Function MV Pk E: 1.00 MV Pk A: 0.96 E/A: 1.00 E'Medial: 6.64 E/E' Med: 15.10 E' Laterial: 7.40 E/E' Lat: 13.50 Right Ventricle TAPSE (mm): 22.40 TVS' [place]: 12.60 Tricuspid Valve TR Pk [place]: 2.33 TR Pk Grad: 22.00 RA Press: 8.00 RVSP: 30.00 Great Vessels Aorta Sinus of Valsalva: 3.11 2.0-3.[address] [place]: 2.38 1.7-3.4 cm Ao Asc: 3.10 2.1-3.4 cm Updated in Other Vendor System with Status of Final Adolfo Toledo MD electronically signed on 02/13/2023 2:35:23 PM with status of Final
== END ==
LOC: HO.CARD 13:52
PROVIDERS: PCP Internal Medicine; Visit Provider Internal Medicine
DX: R00.1 Bradycardia, unspecified (principal); R06.09 Other forms of dyspnea
CPT/HCPCS: 93225; 93306; 93356

== ENCOUNTER → 2023-02-12 13:55 | Outpatient (BNV) | payer MEDICARE, MEDICAID, SELFPAY | PROVIDERS: PCP Internal Medicine; Visit Provider Internal Medicine | DX: I47.10 Supraventricular tachycardia, unspecified (principal) | CPT/HCPCS: 93227; 93306 ==

== ENCOUNTER 2023-02-13 12:29 | Outpatient (AMB) | payer MEDICARE, MEDICAID, SELFPAY ==
--- NOTE | 2023-02-13 12:55 | MHC.PC.OV ---
Vital Signs 02/13/23 13:00 Height 5 ft Weight 18 lb BMI 3.5 BP 136/80 Blood Pressure Location Lt brachial Position Sitting Pulse 56 Pulse Source Pulse Oximeter Pulse Oximetry (%) 100 Oxygen Delivery Method Room Air Intake Visit Reasons: 1 Month follow up Intake Note: Pt is here today for her 1 month f/u Allergies No Known Allergies [No Known Allergies*] Allergy (Verified 02/13/23 12:56) Medication List - Last Reconciled 02/13/23 by Sandy Storm MD albuterol sulfate 90 mcg/actuation 2 puffs inhalation Q6H PRN albuterol sulfate 1.25 mg (3 mL) inhalation QID PRN biotin 10 mg PO DAILY cholecalciferol (vitamin D3) 50 mcg PO DAILY fluticasone furoate-vilanterol 100-25 mcg/dose (Breo Ellipta) 1 inh inhalation DAILY fluticasone furoate-vilanterol 200-25 mcg/dose (Breo Ellipta) 1 inh inhalation DAILY montelukast 10 mg PO DAILY nebulizers For updraft treatments 4 times per day omeprazole 20 mg PO BID Tobacco use date assessed: 02/13/23 Fall risk assessment: No Falls in past year Last assessed Fall Risk: 02/13/23 Dental Screening Dental Screen Date: 02/13/23 Did you have a dental visit in the last 12 months?: Yes Did you have a dental problem in the last 6 months where you did not have access to dental care?: No Was dental information given to patient?: Patient has dentist HPI 1 Month follow up HPI Details Patient presents for follow-up of asthma. Patient denies wheezing PND orthopnea on 200 mcg of Breo but still reports dyspnea on exertion when walking in the parking lot. Patient denies cough pleurisy chest pain palpitations diaphoresis nausea vomiting. She is wearing Holter monitor and had echocardiogram yesterday but results are still pending. [facility] Medical History Skin cancer Chronic back pain Annual physical exam Mild intermittent asthma without complication Surgical History S/P knee replacement H/O colonoscopy Family History Father No problems noted. Mother Diabetes Social History Housing: House Patient Tobacco Use Status: Never used Tobacco e-Cigarette/Vaping Use: Never Used Current occupational status: retired Cognitive needs: No Hearing needs: No Vision needs: No Questionnaire Thrive Questionnaire Date Thrive assessed: 12/23/21 MAJO-7 AMB Questionnaire MAJO-7 Date MAJO - 7 assessed: 12/23/21 Source: Developed by Drs. Wicho Mendez, Tessa Dukes, Tim Aburto and colleagues, with an educational hermilo from [employer]. Review of Systems Const All systems reviewed & are unremarkable except as noted in HPI and below Reports no additional complaints Eyes Reports no additional complaints ENT Reports no additional complaints Card Reports no additional complaints Resp Reports no additional complaints GI Reports no additional complaints Reports no additional complaints Physical exam (Primary Care) Vital Signs: Last Vital Signs Pulse 56 02/13/23 13:00 BP 136/80 02/13/23 13:00 Pulse Ox 100 02/13/23 13:00 Oxygen Delivery Method Room Air 02/13/23 13:00 BMI result Body Mass Index 3.5 Tobacco/Smoking Status: Tobacco use Status Tobacco use date assessed 02/13/23 02/13/23 12:58 Patient Tobacco Use Status Never used Tobacco 02/13/23 12:58 e-Cigarette/Vaping Use Never Used 02/13/23 12:58 Thrive Assessment: Date of Thrive Assessment Date Thrive assessed 12/23/21 02/13/23 12:58 Const General: no acute distress HENMT Face and sinus: Yes normal facial exam Neck Neck: Yes no lymphadenopathy and Yes supple Resp Effort & Inspection: normal respiratory effort Auscultation: clear to auscultation bilaterally Cardio Rhythm: regular rhythm Heart sounds: S1 normal heart sound present and S2 normal heart sound present Assessment and Plan Assessment & Plan (1) NEWMAN (dyspnea on exertion): Code(s): R06.09 - Other forms of dyspnea Plan: Check results of echocardiogram and Holter monitor if the symptoms persist patient will be referred for exercise stress test, check basic blood work today (2) Asthma: Code(s): J45.909 - Unspecified asthma, uncomplicated Plan: Continue Breo and montelukast Orders: Orders Complete Blood Count Auto Diff Today J45.909 - Unspecified asthma, uncomplicated, R06.09 - Other forms of dyspnea B Type Natriuretic Peptide Today J45.909 - Unspecified asthma, uncomplicated, R06.09 - Other forms of dyspnea IRON PROFILE Today J45.909 - Unspecified asthma, uncomplicated, R06.09 - Other forms of dyspnea Comprehensive Met. Panel Today J45.909 - Unspecified asthma, uncomplicated, R06.09 - Other forms of dyspnea Medications: Refilled nebulizers For updraft treatments 4 times per day 1 ea 0RF J45.909 - Unspecified asthma, uncomplicated, R06.09 - Other forms of dyspnea Discontinued fluticasone furoate-vilanterol 100-25 mcg/dose (Breo Ellipta) Discontinued Reason: Doctor's Order 1 inh inhalation DAILY 60 ea 1RF Coding Level of Care Code Est Pt Level 4 (66824) Diagnoses NEWMAN (dyspnea on exertion) R06.09 Asthma J45.90
[2023-02-13 13:00] VITALS: BP 136/80; PULSE 56; O2SAT 100
== END 2023-02-13 15:10 | disposition home or self-care (01) ==
PROVIDERS: PCP Internal Medicine; Visit Provider Internal Medicine
DX: R06.09 Other forms of dyspnea (principal); J45.909 Unspecified asthma, uncomplicated
CPT/HCPCS: 99214

== ENCOUNTER 2023-02-13 13:24 | Outpatient (REF) | payer MEDICARE, MEDICAID, SELFPAY ==
--- NOTE | ~2023-02-13 | XR_ITS ---
EXAMINATION: CHEST 2 VIEWS CLINICAL INFORMATION: R06.09 - Other forms of dyspnea. COMPARISON: No recent pertinent prior studies are available for comparison. TECHNIQUE: PA and lateral views of the chest obtained. FINDINGS: The lungs are well expanded. No focal infiltrate, effusion, edema, or pneumothorax. Cardiac and mediastinal silhouettes are within normal limits for technique. No acute bony abnormality seen with mild degenerative changes in the spine. XR/XR chest 2V IMPRESSION: No evidence of acute disease
[2023-02-13 16:12] LABS: MANUAL DIFF FLAG NO
[2023-02-13 16:21] LABS: Basophils Percent Auto 0.3 % (0-2); Eosinophils Percent Auto 0.4 % (0-4); Hematocrit 32.1 % (37.0-47.0); Imm Gran Abs Auto 0.01 X10*3/uL (0.00-0.03); Imm Gran Pct Auto 0.1 % (0.0-0.4); Lymphocytes Absolute Auto 3.3 X10*3/uL (1.2-4.9); Mean Corpuscular HGB Conc 31.2 g/dl (31.0-35.0); Mean Corpuscular Volume 86.8 fL (80.0-98.0); Mean Platelet Volume 10.7 fL (9.4-12.3); Monocytes Absolute Auto 0.6 X10*3/uL (0.1-1.2); Monocytes Percent Auto 8.8 % (2-11); Neutrophils Absolute Auto 3.1 x10*3/uL (2.0-8.3); Neutrophils Percent Auto 43.4 % (45-73); Platelet Count 392 X10*3/uL (160-400); Red Cell Distribution Width 13.6 % (11.0-16.0); White Blood Count 7.1 X10*3/uL (4.8-10.8)
[2023-02-13 16:33] LABS: Alanine Aminotransferase 16 U/L (0-31); Albumin Level 3.9 g/dL (3.5-5.0); Alkaline Phosphatase 109 U/L (39-117); Anion Gap 11 (12-20); Aspartate Amino Transferase 21 U/L (5-31); Bilirubin Total 0.3 mg/dL (0.0-1.0); Blood Urea Nitrogen 14 mg/dL (9-16); Calcium 8.9 mg/dL (8.4-10.2); Carbon Dioxide 29 mmol/L (22-29); Chloride 104 mmol/L (96-108); Estimated Glomerular Filt Rate > 60; Glucose Random 87 mg/dL (60-115); Iron 70 mcg/dL (30-160); Percent Iron Saturation 18 % (15-50); Potassium 3.7 mmol/L (3.3-5.1); Sodium 140 mmol/L (135-145); Total Iron Binding Capacity 400 mcg/dL (228-428); Total Protein 6.5 g/dL (6.5-8.0); Unsaturated Iron Binding 330 ug/dL
[2023-02-13 16:49] LABS: B Type Natriuretic Peptide 38 pg/mL (<100)
== END 2023-02-13 13:25 | disposition home or self-care (01) ==
LOC: HO.HMGCLDS 13:24
PROVIDERS: PCP Internal Medicine; Visit Provider Internal Medicine
DX: R06.09 Other forms of dyspnea (principal); J45.909 Unspecified asthma, uncomplicated
CPT/HCPCS: 36415; 71046; 80053; 83540; 83880; 85025

== ENCOUNTER 2023-02-27 15:19 | Outpatient (REF) | payer MEDICARE, MEDICAID, SELFPAY ==
[2023-02-27 17:23] LABS: Folate 15.4 ng/mL (> or = 4.0); Vitamin B12 > 2000 pg/mL (200-900)
[2023-03-02 22:14] LABS: Prot Elec - Albumin 3.9 g/dL (3.8-4.8); Prot Elec - Alpha1 0.3 g/dL (0.2-0.3); Prot Elec - Alpha2 0.7 g/dL (0.5-0.9); Prot Elec - Beta 1 0.5 g/dL (0.4-0.6); Prot Elec - Beta 2 0.3 g/dL (0.2-0.5); Prot Elec - Gamma 0.7 g/dL (0.8-1.7); Prot Elec - Total Protein 6.4 g/dL (6.1-8.1)
[2023-03-07 08:04] LABS: IgA 132 mg/dL (70-320); IgG 796 mg/dL (600-1540); IgM 134 mg/dL (50-300)
== END 2023-02-27 15:20 | disposition home or self-care (01) ==
LOC: HO.HMGCLDS 15:19
PROVIDERS: PCP Internal Medicine; Visit Provider Internal Medicine
DX: D64.9 Anemia, unspecified (principal)
CPT/HCPCS: 36415; 82607; 82746; 82784; 84165; 86334

== ENCOUNTER 2023-08-05 13:57 | Outpatient (AMB) | payer OTHER, MEDICAID, SELFPAY ==
[2023-08-05 14:14] VITALS: BP 130/78; PULSE 71; O2SAT 96; BMI 36.1
--- NOTE | 2023-08-05 14:14 | A.OFFPC_ITS ---
Vital Signs 08/05/23 14:14 Height 5 ft Weight 185 lb BMI 36.1 BP 130/78 Blood Pressure Location Lt brachial Position Sitting Pulse 71 Pulse Source Pulse Oximeter Pulse Oximetry (%) 96 Oxygen Delivery Method Room Air Intake Visit Reasons: Leg cramps/UTI follow up Intake Note: Pt is here today for a sick visit. Pt c/o L leg cramping and frequent UTIs. Allergies No Known Allergies [No Known Allergies*] Allergy (Verified 08/05/23 14:19) Tobacco use date assessed: 08/05/23 Fall risk assessment: No Falls in past year Last assessed Fall Risk: 08/05/23 Dental Screening Dental Screen Date: 08/05/23 Did you have a dental visit in the last 12 months?: Yes Did you have a dental problem in the last 6 months where you did not have access to dental care?: No Was dental information given to patient?: Patient has dentist HPI Leg cramps/UTI follow up HPI Details Patient presents complaining of dysuria increased urinary frequency for 1 day. She denies nausea vomiting fever chills abdominal pain. Patient comp lains of chronic left lower extremity cramps and intermittent lower back pain radiating to left lower extremity worse since she has right knee replacement surgery after prolonged walking or at rest. Patient denies any weakness in lower extremities. Asthma is controlled on current medications. [facility] Medical History (Updated 08/05/23 @ 15:10 by Sandy Storm MD) Skin cancer Chronic back pain Annual physical exam Mild intermittent asthma without complication Surgical History S/P knee replacement H/O colonoscopy Family History Father No problems noted. Mother Diabetes Social History Housing: House Patient Tobacco Use Status: Never used Tobacco e-Cigarette/Vaping Use: Never Used service: No Current occupational status: retired Cognitive needs: No Hearing needs: No Vision needs: Yes Questionnaire Thrive Questionnaire Date Thrive assessed: 12/23/21 AUDIT C Alcohol Use Questionnaire (AUDIT-C) 1. How often do you have a drink containing alcohol?: Never 3. How often do you have six or more drinks on one occasion?: Never Total Score: 0 MAJO-7 AMB Questionnaire MAJO-7 Date MAJO - 7 assessed: 12/23/21 Source: Developed by Drs. Wicho Mendez, Tessa Dukes, Tim ramírez nd colleagues, with an educational hermilo from [employer]. Review of Systems Const All systems reviewed & are unremarkable except as noted in HPI and below ENT Reports no additional complaints Card Reports no additional complaints Resp Reports no additional complaints GI Reports no additional complaints Reports no additional complaints Physical exam (Primary Care) Vital Signs: Last Vital Signs Pulse 71 08/05/23 14:14 BP 130/78 08/05/23 14:14 Pulse Ox 96 08/05/23 14:14 Oxygen Delivery Method Room Air 08/05/23 14:14 BMI result Body Mass Index 36.1 Tobacco/Smoking Status: Tobacco use Status Tobacco use date assessed 08/05/23 08/05/23 14:21 Patient Tobacco Use Status Never used Tobacco 08/05/23 14:21 e-Cigarette/Vaping Use Never Used 08/05/23 14:21 Thrive Assessment: Date of Thrive Assessment Date Thrive assessed 12/23/21 08/05/23 14:21 Const General: no acute distress HENMT Head: Yes normal to inspection Resp Effort & Inspection: normal respiratory effort Auscultation: clear to auscultation bilaterally Cardio Rhythm: regular rhythm Heart sounds: S1 normal heart sound present and S2 normal heart sound present GI Inspection: Yes normal to inspection Palpation (GI): Soft to palpation Percussion: Yes normal to percussion Auscultation: normal bowel sounds Back/Spine/Pelvis Other: Paraspinal tenderness lower lumbar region left more than right, straight leg rising 90 degrees bilaterally. There is decreased range of motion crepitus of left knee but no joint swelling. Assessment and Plan Assessment & Plan (1) GERD (gastroesophageal reflux disease): Code(s): K21.9 - Gastro-esophageal reflux disease without esophagitis Plan: Controlled on omeprazole (2) Asthma: Code(s): J45.909 - Unspecified asthma, uncomplicated Plan: Continue current medications (3) Sciatica: Code(s): M54.30 - Sciatica, unspecified side Plan: Check x-ray of lumbar spine referred to physical therapy, for intermittent leg cramps patient was advised to try magnesium supplement (4) UTI (urinary tract infection): Code(s): N39.0 - Urinary tract infection, site not specified Plan: Check UA and culture increase fluid intake (5) Ulcerative colitis: Comment: on Rinvoq, f/u Code(s): K51.90 - Ulcerative colitis, unspecified, without complications Orders: Orders PT Evaluation and Treatment Today J45.909 - Unspecified asthma, uncomplicated, K21.9 - Gastro-esophageal reflux disease without esophagitis Complete Blood Count Auto Diff Today J45.909 - Unspecified asthma, uncomplicated, K21.9 - Gastro-esophageal reflux disease without esophagitis Vitamin D 25-OH Total Today J45.90 - Unspecified asthma, uncomplicated, K21.9 - Gastro-esophageal reflux disease without esophagitis UA w Microscopic Today M54.30 - Sciatica, unspecified side, N39.0 - Urinary tract infection, site not specified Comprehensive Met. Panel Today J45.909 - Unspecified asthma, uncomplicated, K21.9 - Gastro-esophageal reflux disease without esophagitis Magnesium Today J45.909 - Unspecified asthma, uncomplicated, K21.9 - Gastro- esophageal reflux disease without esophagitis XR lumbar spine 2-3V Today J45.909 - Unspecified asthma, uncomplicated, K21.9 - Gastro-esophageal reflux disease without esophagitis Vitamin B12 Today J45.909 - Unspecified asthma, uncomplicated, K21.9 - Gastro- esophageal reflux disease without esophagitis Urine Culture Today N39.0 - Urinary tract infection, site not specified Medications: Refilled omeprazole 20 mg PO BID 180 caps 3RF K21.9 - Gastro-esophageal reflux disease without esophagitis Coding Level of Care Code Est Pt Level 4 (48897) Diagnoses GERD (gastroesophageal reflux disease) K21.9 Asthma J45.909 Sciatica M54.30 UTI (urinary tract infection) N39.0 Ulcerative colitis K51.90
== END 2023-08-05 15:18 | disposition home or self-care (01) ==
PROVIDERS: PCP Internal Medicine; Visit Provider Internal Medicine
DX: K21.9 Gastro-esophageal reflux disease without esophagitis (principal); J45.909 Unspecified asthma, uncomplicated; M54.30 Sciatica, unspecified side; K51.90 Ulcerative colitis, unspecified, without complications; N39.0 Urinary tract infection, site not specified
CPT/HCPCS: 99214

== ENCOUNTER 2023-08-05 14:44 | Outpatient (REF) | payer OTHER, MEDICAID, SELFPAY ==
--- NOTE | ~2023-08-05 | XR_ITS ---
EXAMINATION: XR LUMBOSACRAL SPINE CLINICAL INFORMATION: Low back pain. COMPARISON: None available. TECHNIQUE: 3 views of the lumbosacral spine. FINDINGS: Mild dextroscoliosis of the lumbar spine with a rotatory component. Surgical material in the left upper quadrant. There is a transitional vertebral body referred to as S1 for the purposes of this dictation. It is hemisacralized on the right and to a lesser extent on the left. Facet arthritis in the [id number] lumbar spine. Mild multilevel lumbar spondylosis with mild loss of disc space height most notable at L3-L4, L4-L5 and L5-S1. Minimal grade 1 retrolisthesis of L3 on L4. Moderate degenerative changes in the bilateral sacroiliac joints. XR/XR lumbar spine 2-3V IMPRESSION: 1. Mild multilevel lumbar spondylosis. 2. Facet arthritis in the [id number] lumbar spine. 3. 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 It is hemisacralized on the right and to a lesser extent on the left.
[2023-08-05 16:19] LABS: MANUAL DIFF FLAG NO
[2023-08-05 16:26] LABS: Appearance Urine Clear; Color Urine Yellow; Glucose Urine UA Negative (Negative); Leukocyte Esterase Urine Trace (Negative); Nitrite Urine Negative (Negative); Specific Gravity - Urine 1.015 (1.005-1.025); UMIC TRIGGER UA YES; Urine Blood Moderate (2+) (Negative); Urine Ketones Negative (Negative); Urine Protein Negative (Neg-Trace)
[2023-08-05 16:27] LABS: Basophils Percent Auto 0.4 % (0-2); Eosinophils Absolute Auto 0.1 X10*3/uL (0.0-0.4); Hemoglobin 10.3 g/dl (12.0-16.0); Imm Gran Abs Auto 0.04 X10*3/uL (0.00-0.03); Imm Gran Pct Auto 0.6 % (0.0-0.4); Lymphocytes Absolute Auto 2.9 X10*3/uL (1.2-4.9); Lymphocytes Percent Auto 42.5 % (20-40); Mean Corpuscular HGB Conc 32.2 g/dl (31.0-35.0); Mean Corpuscular Hemoglobin 27.2 pg (27.0-33.0); Mean Corpuscular Volume 84.4 fL (80.0-98.0); Mean Platelet Volume 10.3 fL (9.4-12.3); Monocytes Absolute Auto 0.6 X10*3/uL (0.1-1.2); Monocytes Percent Auto 8.8 % (2-11); Neutrophils Absolute Auto 3.2 x10*3/uL (2.0-8.3); Neutrophils Percent Auto 46.7 % (45-73); Platelet Count 401 X10*3/uL (160-400); Red Blood Count 3.79 X10*6/uL (4.20-5.50); Red Cell Distribution Width 15.1 % (11.0-16.0); White Blood Count 6.8 X10*3/uL (4.8-10.8)
[2023-08-05 16:31] LABS: Bacteria Urine None Seen (None Seen); Hyaline Casts Urine 0-2 /LPF (0-2)
[2023-08-05 19:13] LABS: Alanine Aminotransferase 28 U/L (0-31); Alkaline Phosphatase 106 U/L (39-117); Anion Gap 14 (12-20); Aspartate Amino Transferase 24 U/L (5-31); Bilirubin Total 0.2 mg/dL (0.0-1.0); Blood Urea Nitrogen 13 mg/dL (9-16); Calcium 9.3 mg/dL (8.4-10.2); Carbon Dioxide 26 mmol/L (22-29); Chloride 105 mmol/L (96-108); Estimated Glomerular Filt Rate > 60; Glucose Random 113 mg/dL (60-115); Potassium 3.9 mmol/L (3.3-5.1); Sodium 141 mmol/L (135-145); Total Protein 6.6 g/dL (6.5-8.0)
[2023-08-05 19:24] LABS: Vitamin D 25-OH Total 33.3 ng/mL (>30)
[2023-08-05 19:34] LABS: Vitamin B12 > 2000 pg/mL (200-900)
== END 2023-08-05 14:45 | disposition home or self-care (01) ==
LOC: HO.HMGCX 14:44
PROVIDERS: PCP Internal Medicine; Visit Provider Internal Medicine
DX: K21.9 Gastro-esophageal reflux disease without esophagitis (principal); J45.909 Unspecified asthma, uncomplicated; M54.30 Sciatica, unspecified side; N39.0 Urinary tract infection, site not specified
CPT/HCPCS: 36415; 72100; 80053; 81001; 82306; 82607; 83735; 85025; 87086

== ENCOUNTER 2023-08-06 14:00 | Outpatient (REF) | payer OTHER, SELFPAY ==
--- NOTE | ~2023-08-06 | US_ITS ---
EXAMINATION: US VENOUS ULTRASOUND WITH DOPPLER LOWER EXTREMITY, LEFT CLINICAL INFORMATION: Pain in left leg COMPARISON: None available. TECHNIQUE: Ultrasound of the deep veins is performed from the hip to the calf with compression sonography and color and pulse Doppler assessment. Spectral analysis with color-flow imaging is performed. FINDINGS: There is normal venous compression and respiratory variation and augmented flow. The visualized common femoral vein, superficial femoral vein, profunda femoral vein, popliteal vein, and the posterior tibial and peroneal veins show no evidence of deep venous thrombosis. 3.4 x 0.6 x 1.9 cm Bell's cyst is seen in the left popliteal fossa. US/US venous duplex LE IMPRESSION: 1. No DVT demonstrated in the left lower extremity. 2. 3.4 cm Bell's cyst in the left popliteal fossa.
== END 2023-08-06 14:01 | disposition home or self-care (01) ==
LOC: HO.HMGCX 14:00
PROVIDERS: PCP Internal Medicine; Visit Provider Internal Medicine
DX: M79.605 Pain in left leg (principal); M71.22 Synovial cyst of popliteal space [Baker], left knee
CPT/HCPCS: 93971

== ENCOUNTER 2023-08-17 14:06 | Outpatient (REF) | payer OTHER, SELFPAY ==
--- NOTE | ~2023-08-17 | US_ITS ---
EXAMINATION: US RETROPERITONEAL COMPLETE (RENAL) CLINICAL INFORMATION: Other microscopic hematuria. COMPARISON: None available. TECHNIQUE: Real-time imaging of the kidneys and bladder. Limited visualization due to bowel gas. FINDINGS: RIGHT KIDNEY: 10.6 x 4.1 x 4.8 cm (SAG x AP x TRV). No hydronephrosis. No renal calculi. Renal cortical thickness is normal. Limited visualization. LEFT KIDNEY: 10.8 x 4.7 x 5.0 cm (SAG x AP x TRV). No hydronephrosis. No renal calculi. Renal cortical thickness is normal. Limited visualization. BLADDER: Partially distended. Bilateral ureteral jets are demonstrated. Prevoid bladder volume is 195 mL. Postvoid bladder volume is 82 mL. US/US retroperitoneal comp IMPRESSION: 1. No hydronephrosis. No renal calculi. 2. Postvoid bladder volume is 82 mL.
[2023-08-17 16:42] LABS: Appearance Urine Clear; Color Urine Yellow; Glucose Urine UA Negative (Negative); Leukocyte Esterase Urine Trace (Negative); Nitrite Urine Negative (Negative); PH 5.5 (5.0-9.0); UMIC TRIGGER UA YES; Urine Blood Negative (Negative); Urine Ketones Negative (Negative); Urine Protein Negative (Neg-Trace)
[2023-08-17 16:45] LABS: Bacteria Urine Trace (None Seen); Hyaline Casts Urine 0-2 /LPF (0-2); RBC Urine 0-2 /HPF (0-2); WBC Urine 0-5 /HPF (0-5)
== END 2023-08-17 14:07 | disposition home or self-care (01) ==
LOC: HO.HMGCX 14:06
PROVIDERS: PCP Internal Medicine; Visit Provider Internal Medicine
DX: R31.29 Other microscopic hematuria (principal)
CPT/HCPCS: 76770; 76775; 81001

== ENCOUNTER 2024-01-20 08:54 | Outpatient (AMB) | payer MEDICARE, SELFPAY ==
[2024-01-20 09:05] VITALS: BP 130/80; PULSE 67; O2SAT 97; BMI 36.6
--- NOTE | 2024-01-20 09:05 | MHC.OFFWIV ---
Intake Vital Signs 01/20/24 09:05 Height 5 ft Weight 187 lb 6 oz BMI 36.6 BP 130/80 Blood Pressure Location Lt brachial Position Sitting Pulse 67 Pulse Source Pulse Oximeter Pulse Oximetry (%) 97 Oxygen Delivery Method Room Air Intake Visit Reasons: EP ? UTI Patient Tobacco Use Status: Never used Tobacco Allergies No Known Allergies [No Known Allergies*] Allergy (Verified 01/20/24 09:07) Medication List - Last Reconciled 01/20/24 by Riddhi Sylvseter MD albuterol sulfate 90 mcg/actuation 2 puffs inhalation Q6H PRN albuterol sulfate 1.25 mg (3 mL) inhalation QID PRN alendronate (Fosamax) 70 mg PO QWEEK biotin 10 mg PO DAILY cholecalciferol (vitamin D3) 50 mcg PO DAILY fluticasone furoate-vilanterol 200-25 mcg/dose (Breo Ellipta) 1 inh inhalation DAILY mecobalamin (vitamin B12) 1,000 mcg PO DAILY montelukast 10 mg PO DAILY nebulizers For updraft treatments 4 times per day omeprazole 20 mg PO BID upadacitinib ER (Rinvoq) 30 mg PO DAILY Do you need a note to return to daycare/school/sports/work: No HPI EP ? UTI HPI Details Patient is 68-year-old female came in today to be evaluated for possible urinary tract infection She tells me that symptoms has been happening for the past 1 week Complaining of frequency and dysuria and lower abdominal discomfort Review system reveals no nausea no vomiting no back pain no headache no dizziness UA is positive for 3+ blood I am treating her with Macrobid for 5 days b.i.d. And Pyridium Patient was instructed to push fluids PFSH Medical History Skin cancer Chronic back pain Annual physical exam Mild intermittent asthma without complication Surgical History S/P knee replacement H/O colonoscopy Family History Father No problems noted. Mother Diabetes Social History Housing: House Patient Tobacco Use Status: Never used Tobacco e-Cigarette/Vaping Use: Never Used service: No Current occupational status: retired Cognitive needs: No Hearing needs: No Vision needs: Yes Review of Systems Const All systems reviewed & are unremarkable except as noted in HPI and below Physical Exam Vital Signs: Last Vital Signs Pulse 67 01/20/24 09:05 BP 130/80 01/20/24 09:05 Pulse Ox 97 01/20/24 09:05 Oxygen Delivery Method Room Air 01/20/24 09:05 BMI result Body Mass Index 36.6 Const General: no acute distress Orientation/consciousness: patient oriented x3 Eyes General: appearance normal, both eyes and all related structures Resp Effort & Inspection: normal respiratory effort and able to speak in complete sentences GI Other: Suprapubic discomfort present with pressure General: Yes no CVA tenderness Back/Spine/Pelvis Back: no CVA tenderness Neuro General: patient oriented x3 Psych Mental Status: mental status grossly normal Assessment & Plan Assessment & Plan (1) Acute cystitis with hematuria: Code(s): N30.01 - Acute cystitis with hematuria Plan Patient is 68-year-old female came in today to be evaluated for possible urinary tract infection She tells me that symptoms has been happening for the past 1 week Complaining of frequency and dysuria and lower abdominal discomfort Review system reveals no nausea no vomiting no back pain no headache no dizziness UA is positive for 3+ blood I am treating her with Macrobid for 5 days b.i.d. And Pyridium Patient was instructed to push fluids Orders: Orders Urine Culture Today N30.01 - Acute cystitis with hematuria Medications: New nitrofurantoin monohyd/m-cryst 100 mg (Macrobid) must administer with a meal/food 100 mg PO Q12H 10 caps 0RF 5 days phenazopyridine (Pyridium) 200 mg PO TID PRN 6 tabs 0RF pain 2 days Coding Level of Care Code Est Pt Level 3 (91782) Diagnoses Acute cystitis with hematuria N30.01
== END 2024-01-20 09:23 | disposition home or self-care (01) ==
PROVIDERS: PCP Internal Medicine; Visit Provider Internal Medicine
DX: N30.01 Acute cystitis with hematuria (principal)

== ENCOUNTER → 2024-01-20 08:54 | Outpatient (BNVA) | payer MEDICARE, SELFPAY | PROVIDERS: PCP Internal Medicine; Visit Provider Internal Medicine | DX: N30.01 Acute cystitis with hematuria (principal) | CPT/HCPCS: 99212 ==

== ENCOUNTER 2024-01-28 11:17 | Outpatient (AMB) | payer MEDICARE, SELFPAY ==
--- NOTE | 2024-01-28 11:20 | A.OFFPC_ITS ---
Vital Signs 01/28/24 11:21 Height 5 ft Weight 186 lb BMI 36.3 BP 120/82 Blood Pressure Location Lt brachial Position Sitting Pulse 68 Pulse Source Pulse Oximeter Pulse Oximetry (%) 95 Oxygen Delivery Method Room Air Intake Visit Reasons: Urinary tract infection Intake Note: Pt is here today for a sick visit. Pt states that she was seen in a walk inj for UTI and was on antibiotic and after she finished it she feels like its back. Pt c/o pain and burning when urinating frequent urination. Allergies No Known Allergies [No Known Allergies*] Allergy (Verified 01/28/24 11:25) Medication List - Last Reconciled 01/28/24 by Sandy Storm MD albuterol sulfate 90 mcg/actuation 2 puffs inhalation Q6H PRN albuterol sulfate 1.25 mg (3 mL) inhalation QID PRN alendronate (Fosamax) 70 mg PO QWEEK biotin 10 mg PO DAILY cholecalciferol (vitamin D3) 50 mcg PO DAILY fluticasone furoate-vilanterol 200-25 mcg/dose (Breo Ellipta) 1 inh inhalation DAILY mecobalamin (vitamin B12) 1,000 mcg PO DAILY montelukast 10 mg PO DAILY nebulizers For updraft treatments 4 times per day omeprazole 20 mg PO BID sulfamethoxazole-trimethoprim 800-160 mg (Bactrim DS) 1 tab PO BID upadacitinib ER (Rinvoq) 30 mg PO DAILY Tobacco use date assessed: 01/28/24 Fall risk assessment: No Falls in past year Last assessed Fall Risk: 01/28/24 Dental Screening Dental Screen Date: 08/05/23 HPI Urinary tract infection HPI Details Patient presents complaining of recurrent UTIs. She was seen in urgent care on January 19 and was prescribed 5 days of Macrobid. She developed recurrent symptoms after 2 days of finishing antibiotic. She has been getting UTIs almost monthly since diagnosed with ulcerative colitis. She follows up with GI for UC and has been taking Rinvoq. Patient reports frequent bowel movements formed up to 5 times each morning. Patient denies fever chills nausea vomiting hematuria or hematochezia. FORMERLY [facility], [facility]–1983 Medical History Skin cancer Chronic back pain Annual physical exam Mild intermittent asthma without complication Surgical History S/P knee replacement H/O colonoscopy Family History Father No problems noted. Mother Diabetes Social History Housing: House Patient Tobacco Use Status: Never used Tobacco e-Cigarette/Vaping Use: Never Used service: No Current occupational status: retired Cognitive needs: No Hearing needs: No Vision needs: Yes Questionnaire Thrive Questionnaire Date Thrive assessed: 12/23/21 I am a: Patient What is your living situation today?: I choose not to answer this question Within the past 12 months, did the food you bought not last and you didn't have the money to get more?: I choose not to answer this question Within the past 12 months, did you worry whether your food would run out before you got money to buy more?: I choose not to answer this question Do you have trouble paying for medicines?: I choose not to answer this question Do you have trouble getting transportation to medical appointments?: I choose not to answer this question Do you have trouble paying your heating and electricity bill?: I choose not to answer this question Do you have trouble taking care of your child, family member or friend?: I choose not to answer this question Do you have trouble with day-to-day activities such as bathing, preparing meals, shopping, managing finances, etc.?: I choose not to answer this question Are you currently unemployed and looking for a job?: I choose not to answer this question Are you interested in more education?: I choose not to answer this question Please select the resources that you would like help with: None Currently or been in a relationship where the following occur: I choose not to answer THRIVE Score: 0 AUDIT C Alcohol Use Questionnaire (AUDIT-C) 1. How often do you have a drink containing alcohol?: Never Total Score: 0 MAJO-7 AMB Questionnaire MAJO-7 Date MAJO - 7 assessed: 12/23/21 Feeling nervous, anxious, or on edge: 0 = Not at all Not being able to stop or control worryin = Not at all Worrying too much about different things: 0 = Not at all Trouble relaxin = Not at all Being so restless that it is hard to sit still: 0 = Not at all Becoming easily annoyed or irritable: 0 = Not at all Feeling afraid as if something awful might happen: 0 = Not at all Total MAJO-7 score (0-4 normal; 5-9 mild; 10-14 moderate; 15-21 severe): 0 Source: Developed by Drs. Wicho Mendez, Tessa Dukes, Tim Aburto and colleagues, with an educational hermilo from [employer]. Review of Systems Const All systems reviewed & are unremarkable except as noted in HPI and below Eyes Reports no additional complaints ENT Reports no additional complaints Card Reports no additional complaints Resp Reports no additional complaints GI Reports no additional complaints Physical exam (Primary Care) Vital Signs: Last Vital Signs Pulse 68 01/28/24 11:21 BP 120/82 01/28/24 11:21 Pulse Ox 95 01/28/24 11:21 Oxygen Delivery Method Room Air 01/28/24 11:21 BMI result Body Mass Index 36.3 Tobacco/Smoking Status: Tobacco use Status Tobacco use date assessed 01/28/24 01/28/24 11:28 Patient Tobacco Use Status Never used Tobacco 01/28/24 11:21 e-Cigarette/Vaping Use Never Used 01/28/24 11:21 Thrive Assessment: Date of Thrive Assessment Date Thrive assessed 12/23/21 01/28/24 11:21 Currently or been in a relationship where the following occur: I choose not to answer Const General: no acute distress HENMT Head: Yes normal to inspection Eyes General: appearance normal, both eyes and all related structures Neck Neck: Yes supple Resp Effort & Inspection: normal respiratory effort Auscultation: clear to auscultation bilaterally Cardio Rhythm: regular rhythm Heart sounds: S1 normal heart sound present and S2 normal heart sound present GI Inspection: Yes normal to inspection Palpation (GI): Soft to palpation Percussion: Yes normal to percussion Auscultation: normal bowel sounds Results AMB Urinalysis, Automated UA Leukoctes 0 Jose/uL Last Edit by LONA Erickson on 01/28/24 11:36 UA Nitrite Negative Last Edit by LOAN Erickson on 01/28/24 11:36 UA Urobilinogen 0.2 mg/dL Last Edit by LONA Erickson on 01/28/24 11: 36 UA Protein 0 mg/dL Last Edit by LONA Erickson on 01/28/24 11:36 UA pH 6.0 Last Edit by Monse Sanchez Betsey on 01/28/24 11:36 UA Blood 80 Ralph/uL Last Edit by Monse Sanchez Betsey on 01/28/24 11:36 UA Specific [place] 1.020 Last Edit by Monse Sanchez Betsey on 01/28/24 11 :36 UA Ketone Negative Last Edit by Monse Sanchez Betsey on 01/28/24 11:36 UA Bilirubin 0 mg/dL Last Edit by LONA Erickson on 01/28/24 11:36 UA Glucose 0 mg/dL Last Edit by Monse Sanchez Betsey on 01/28/24 11:36 Results Reviewed Results Reviewed: Laboratory Last Values Urine pH (Auto) 6.0 01/28/24 11:28 Specific [place] (Auto) 1.020 01/28/24 11:28 Urine Protein (Auto) 0 mg/dL 01/28/24 11:28 Glucose (UA)(Auto) 0 mg/dL 01/28/24 11:28 Urine Ketones (Auto) Negative 01/28/24 11:28 Urine Blood (Auto) 80 Ralph/uL 01/28/24 11:28 Urine Nitrite (Auto) Negative 01/28/24 11:28 Urine Bilirubin (Auto) 0 mg/dL 01/28/24 11:28 Urine Urobilinogen (Auto) 0.2 mg/dL 01/28/24 11:28 Leukocyte Esterase (Auto) 0 Jose/uL 01/28/24 11:28 Coding Level of Care Code Est Pt Level 3 (23587) Diagnoses Acute cystitis with hematuria N30.01 Assessment & Plan Assessment & Plan (1) Acute cystitis with hematuria: Code(s): N30.01 - Acute cystitis with hematuria Category: Medical Plan: Check urine culture, treat with Bactrim for 1 week and recheck urine culture 1 week after completing the treatment. Patient was try estradiol vaginal cream for 1 month. She will also address increased frequency of bowel movements with the crisis therapist. Orders: Orders AMB Urinalysis Automated Today Z13.9 - Encounter for screening, unspecified Urine Culture 2 Weeks N30.01 - Acute cystitis with hematuria Medications: New sulfamethoxazole-trimethoprim 800-160 mg (Bactrim DS) 1 tab PO BID 14 tabs 0RF estradiol 0.01%(0.1mg/gram) 0.25 appful vaginal DAILY 42.5 grams 1RF
[2024-01-28 11:21] VITALS: BP 120/82; PULSE 68; O2SAT 95; BMI 36.3
== END 2024-01-28 12:01 | disposition home or self-care (01) ==
LOC: HO.HMCC 11:17
PROVIDERS: PCP Internal Medicine; Visit Provider Internal Medicine
DX: N30.01 Acute cystitis with hematuria (principal); Z13.9 Encounter for screening, unspecified

== ENCOUNTER 2024-01-28 11:17 | Outpatient (REF) | payer MEDICARE, SELFPAY | END 2024-01-28 11:18 | disposition home or self-care (01) | LOC: HO.HMGCLDS 11:17 | PROVIDERS: PCP Internal Medicine; Visit Provider Internal Medicine | DX: N30.01 Acute cystitis with hematuria (principal); R31.29 Other microscopic hematuria; N39.0 Urinary tract infection, site not specified | CPT/HCPCS: 81003; 87086; 99212 ==

== ENCOUNTER 2024-02-08 09:15 | Outpatient (REF) | payer MEDICARE, SELFPAY | END 2024-02-08 09:16 | disposition home or self-care (01) | LOC: HO.HMGCLDS 09:15 | PROVIDERS: PCP Internal Medicine; Visit Provider Internal Medicine | DX: N30.01 Acute cystitis with hematuria (principal) | CPT/HCPCS: 87086 ==

== ENCOUNTER 2024-09-15 07:12 | Outpatient (REF) | payer MEDICARE, SELFPAY ==
[2024-09-15 10:18] LABS: MANUAL DIFF FLAG NO
[2024-09-15 10:37] LABS: Basophils Percent Auto 0.4 % (0-2); Eosinophils Percent Auto 0.6 % (0-4); Hematocrit 33.8 % (37.0-47.0); Hemoglobin 10.8 g/dl (12.0-16.0); Imm Gran Abs Auto 0.02 X10*3/uL (0.00-0.03); Imm Gran Pct Auto 0.3 % (0.0-0.4); Lymphocytes Absolute Auto 2.2 X10*3/uL (1.2-4.9); Lymphocytes Percent Auto 30.6 % (20-40); Mean Corpuscular Hemoglobin 28.1 pg (27.0-33.0); Mean Platelet Volume 10.4 fL (9.4-12.3); Monocytes Absolute Auto 0.7 X10*3/uL (0.1-1.2); Monocytes Percent Auto 9.3 % (2-11); Neutrophils Absolute Auto 4.2 x10*3/uL (2.0-8.3); Neutrophils Percent Auto 58.8 % (45-73); Platelet Count 351 X10*3/uL (160-400); Red Blood Count 3.84 X10*6/uL (4.20-5.50); Red Cell Distribution Width 13.7 % (11.0-16.0); White Blood Count 7.1 X10*3/uL (4.8-10.8)
[2024-09-15 10:43] LABS: Estimated Average Glucose 169 mg/dL; Hemoglobin A1c % 7.5 % (<6.0)
[2024-09-15 11:10] LABS: Alanine Aminotransferase 31 U/L (0-31); Albumin Level 3.8 g/dL (3.5-5.0); Alkaline Phosphatase 105 U/L (39-117); Anion Gap 12 (12-20); Aspartate Amino Transferase 30 U/L (5-31); Bilirubin Total 0.3 mg/dL (0.0-1.0); Blood Urea Nitrogen 13 mg/dL (9-16); Calcium 8.8 mg/dL (8.4-10.2); Carbon Dioxide 28 mmol/L (22-29); Chloride 105 mmol/L (96-108); Cholesterol 189 mg/dL (<200); Estimated Glomerular Filt Rate > 60; Glucose Fasting 123 mg/dL (60-99); HDL Cholesterol 70 mg/dL (>40); LDL Cholesterol Calculated 102 mg/dL (<100); Potassium 3.7 mmol/L (3.3-5.1); Sodium 141 mmol/L (135-145); Total Protein 6.2 g/dL (6.5-8.0); Triglycerides 89 mg/dL (<150)
[2024-09-15 11:14] LABS: TSH reflex Free T4 2.04 uIU/mL (0.32-4.0); Vitamin D 25-OH Total 43.9 ng/mL (>30)
[2024-09-15 11:36] LABS: Folate 13.6 ng/mL (> or = 4.0); Vitamin B12 > 2000 pg/mL (200-900)
== END 2024-09-15 07:13 | disposition home or self-care (01) ==
LOC: HO.HMGCLDS 07:12
PROVIDERS: PCP Internal Medicine; Visit Provider Internal Medicine
DX: J45.909 Unspecified asthma, uncomplicated (principal); D64.9 Anemia, unspecified; R03.0 Elevated blood-pressure reading, without diagnosis of hypertension; R00.1 Bradycardia, unspecified; Z13.1 Encounter for screening for diabetes mellitus; Z13.6 Encounter for screening for cardiovascular disorders
CPT/HCPCS: 36415; 80053; 80061; 82306; 82607; 82746; 83036; 84443; 85025

== ENCOUNTER 2024-09-16 11:13 | Outpatient (AMB) | payer MEDICARE, SELFPAY ==
[2024-09-16 11:15] VITALS: BP 138/76; PULSE 60; RESP 18; TEMP 36.7; O2SAT 98; BMI 35.7
--- NOTE | 2024-09-16 11:15 | MHC.PC.OV ---
Vital Signs 09/16/24 11:15 Height 5 ft Weight 183 lb BMI 35.7 BP 138/76 Blood Pressure Location Lt brachial Position Sitting Respiration 18 Pulse 60 Pulse Source Pulse Oximeter Temp 98.1 F Temp Source Oral Pulse Oximetry (%) 98 Oxygen Delivery Method Room Air Intake Visit Reasons: Swelling on legs and ankles, leg cramps Intake Note: Pt is here today for a sick visit. Pt c/o swelling in legs, ankles and feet. Allergies No Known Allergies (No Known Allergies*) Allergy (Verified 09/16/24 11:16) Medication List - Last Reconciled 09/16/24 by Sandy Storm MD albuterol sulfate 90 mcg/actuation 2 puffs inhalation Q6H PRN albuterol sulfate 1.25 mg (3 mL) inhalation QID PRN alendronate (Fosamax) 70 mg PO QWEEK biotin 10 mg PO DAILY Breo Ellipta 200-25 mcg/dose (fluticasone furoate-vilanterol) 1 inh inhalation DAILY NS cholecalciferol (vitamin D3) 50 mcg PO DAILY estradiol 0.01%(0.1mg/gram) 0.25 appful vaginal DAILY furosemide (Lasix) 20 mg PO DAILY mecobalamin (vitamin B12) 1,000 mcg PO DAILY montelukast 10 mg PO DAILY nebulizers For updraft treatments 4 times per day omeprazole 20 mg PO BID upadacitinib ER (Rinvoq) 30 mg PO DAILY Tobacco use date assessed: 09/16/24 Fall risk assessment: 1 Fall in past year Last assessed Fall Risk: 09/16/24 Dental Screening Dental Screen Date: 09/16/24 Did you have a dental visit in the last 12 months?: Yes Did you have a dental problem in the last 6 months where you did not have access to dental care?: No Was dental information given to patient?: Patient has dentist HPI Swelling on legs and ankles, leg cramps HPI Details Patient presents complaining of feeling tired , having low energy, being less physically active and sitting most of the days for a few weeks. She noticed increased lower extremities swelling at the end of the day. Patient denies chest pain shortness or breath at rest PND orthopnea fever chills GI or complaints. Patient complains of leg cramps worse at night despite drinking a lot of fluids. FORMERLY [facility] Medical History (Updated 09/16/24 @ 12:25 by Sandy Storm MD) Diabetes type 2 [place] (dyspnea on exertion) GERD (gastroesophageal reflux disease) Ulcerative colitis Skin cancer Chronic back pain Annual physical exam Mild intermittent asthma without complication Surgical History S/P knee replacement H/O colonoscopy Family History Father No problems noted. Mother Diabetes Social History (Reviewed 09/16/24 @ 11:21 by Monse Sanchez COUNTS INCLUDE 234 BEDS AT THE [facility]) Housing: House Patient Tobacco Use Status: Never used Tobacco e-Cigarette/Vaping Use: Never Used service: No Current occupational status: retired Cognitive needs: No Hearing needs: No Vision needs: Yes Questionnaire PHQ-9 Over the last 2 weeks, how often have you been bothered by any of the following problems? 1. Little interest or pleasure in doing things: not at all 2. Feeling down, depressed, or hopeless: not at all 3. Trouble falling or staying asleep, or sleeping too much: not at all 4. Feeling tired or having little energy: nearly every day 5. Poor appetite or overeating: not at all 6. Feeling bad about yourself - or that you are a failure or have let yourself or your family down: not at all 7. Trouble concentrating on things, such as reading the newspaper or watching television: not at all 8. Moving or speaking so slowly that other people could have noticed. Or the opposite - being so fidgety or restless that you have been moving around a lot more than usual: not at all 9. Thoughts that you would be better off or of hurting yourself in some way: not at all Total score: 3 Depression Screening Interpretation: Negative Depression Screening Done: Yes 50280 - PHQ-9 Billing: Yes Source: Developed by Drs. Wicho Mendez, Tessa Dukes, Tim Aburto and colleagues, with an educational hermilo from [employer]. Thrive Questionnaire Date Thrive assessed: 09/16/24 I am a: Patient What is your living situation today?: I have a steady place to live Within the past 12 months, did the food you bought not last and you didn't have the money to get more?: I choose not to answer this question Within the past 12 months, did you worry whether your food would run out before you got money to buy more?: I choose not to answer this question Do you have trouble paying for medicines?: I choose not to answer this question Do you have trouble getting transportation to medical appointments?: I choose not to answer this question Do you have trouble paying your heating and electricity bill?: I choose not to answer this question Do you have trouble taking care of your child, family member or friend?: I choose not to answer this question Do you have trouble with day-to-day activities such as bathing, preparing meals, shopping, managing finances, etc.?: I choose not to answer this question Are you currently unemployed and looking for a job?: I choose not to answer this question Are you interested in more education?: I choose not to answer this question Please select the resources that you would like help with: None Currently or been in a relationship where the following occur: I choose not to answer THRIVE Score: 0 AUDIT C Alcohol Use Questionnaire (AUDIT-C) 1. How often do you have a drink containing alcohol?: Never 3. How often do you have six or more drinks on one occasion?: Never Total Score: 0 MAJO-7 AMB Questionnaire MAJO-7 Date MAJO - 7 assessed: 09/16/24 Feeling nervous, anxious, or on edge: 0 = Not at all Not being able to stop or control worryin = Not at all Worrying too much about different things: 0 = Not at all Trouble relaxin = Not at all Being so restless that it is hard to sit still: 0 = Not at all Becoming easily annoyed or irritable: 0 = Not at all Feeling afraid as if something awful might happen: 0 = Not at all Total MAJO-7 score (0-4 normal; 5-9 mild; 10-14 moderate; 15-21 severe): 0 Source: Developed by Drs. Wicho Mendez, Tessa Dukes, Tim Aburto and colleagues, with an educational hermilo from [employer]. MAJO-7 Assessment Billing MAJO-7 Assessment Tool: MAJO-7 Assessment 58891 Review of Systems Const All systems reviewed & are unremarkable except as noted in HPI and below Eyes Reports no additional complaints ENT Reports no additional complaints Card Reports no additional complaints Resp Reports no additional complaints GI Reports no additional complaints Reports no additional complaints Physical exam (Primary Care) Vital Signs: Last Vital Signs Temp 98.1 F 09/16/24 11:15 Pulse 60 09/16/24 11:15 Resp 18 09/16/24 11:15 BP 138/76 09/16/24 11:15 Pulse Ox 98 09/16/24 11:15 Oxygen Delivery Method Room Air 09/16/24 11:15 BMI result Body Mass Index 35.7 Tobacco/Smoking Status: Tobacco use Status Tobacco use date assessed 09/16/24 09/16/24 11:24 Patient Tobacco Use Status Never used Tobacco 09/16/24 11:24 e-Cigarette/Vaping Use Never Used 09/16/24 11:24 PHQ-9: PHQ-9 Score PHQ-9: Total score 3 09/16/24 11:24 Depression Screening Interpretation: Negative Thrive Assessment: Date of Thrive Assessment Date Thrive assessed 09/16/24 09/16/24 11:24 Currently or been in a relationship where the following occur: I choose not to answer Const General: no acute distress HENMT Head: Yes normal to inspection Throat: Yes posterior oropharynx normal Neck Neck: Yes supple Resp Effort & Inspection: normal respiratory effort Auscultation: clear to auscultation bilaterally Cardio Rhythm: regular rhythm Heart sounds: S1 normal heart sound present and S2 normal heart sound present GI Inspection: Yes normal to inspection Palpation (GI): Soft to palpation Percussion: Yes normal to percussion Auscultation: normal bowel sounds Extrem Other: 1+ pitting edema bilaterally Results AMB Fasting Glucose AMB Fasting Glucose 97 mg/dL Last Edit by LONA Erickson on 09/16/24 11:59 Coding Level of Care Code Est Pt Level 4 (97398) Complex EM visit Add On G2211 Diagnoses Diabetes type 2 E11.9 Ulcerative colitis K51.90 Asthma J45.909 Edema R60.9 Additional Codes MAJO-7 Assessment Billing - MAJO-7 Assessment Tool: MAJO-7 Assessment 66455 ([id number]) PHQ-9 - 75363 - PHQ-9 Billing: Yes ([id number]) Assessment & Plan Assessment & Plan (1) Diabetes type 2: Code(s): E11.9 - Type 2 diabetes mellitus without complications Category: Medical Plan: A1c is 7.5. ADA diet increase physical activity weight loss discussed with the patient. Patient declined medications. She was advised to start monitoring her blood glucose fasting and record the readings. Patient declined referral to fish boning machine feeder. She will follow-up in 6 weeks (2) Ulcerative colitis: Comment: on Rinvoq, f/u Code(s): K51.90 - Ulcerative colitis, unspecified, without complications Category: Medical Plan: In remission, follow-up with GI (3) Asthma: Code(s): J45.909 - Unspecified asthma, uncomplicated Category: Medical Plan: Controlled on Breo (4) Edema: Code(s): R60.9 - Edema, unspecified Category: Medical Plan: Increasing physical activity elevating lower extremities while sitting discussed with the patient. Furosemide when mg every other day PRN is prescribed. Patient will follow-up in 6 weeks Orders: Orders AMB Fasting Glucose Today Z13.9 - Encounter for screening, unspecified Medications: New furosemide (Lasix) 20 mg PO DAILY 20 tabs 0RF blood sugar diagnostic (OneTouch Ultra Test strips) 1 qd 100 ea 2RF blood-glucose meter (OneTouch Ultra2 Meter) As directed 1 ea 0RF
--- OUTSIDE RECORDS SUMMARY | 2024-09-16 11:36 | XMS_ITS | Clinical Summary ---
Author Organization [facility] 299 [facility] Address [address] [place] [address] Phone Care Team Providers Care Cloth Winding Supervisor Name Role Phone Sandy Storm MD Primary Care Provider [phone] Allergies No known active allergies Medications omeprazole (PriLOSEC) [address] capsuleIndicati ons:Gastroesoph ageal reflux disease without esophagitis TAKE 1 CAPSULE BY MOUTH TWICE A DAY 180 capsule 5 5 Active cyanocobalamin, vitamin B-12, (VITAMIN B-12 ORAL) Take by mouth. Active sucralfate (CARAFATE) 100 mg/mL suspensionIndic ations:Gastroes ophageal reflux disease without esophagitis TAKE 10 ML (1 G TOTAL) BY MOUTH 1 (ONE) TIME EACH DAY IN THE EVENING. TAKE 1 HOUR BEFORE MEALS AND AT BEDTIME 900 mL 2 5 026 Active sucralfate (CARAFATE) 100 mg/mL suspensionIndic ations:Gastroes ophageal reflux disease without esophagitis Take 10 mL (1 g total) by mouth 1 (one) time each day in the evening. Take 1 hour before meals and at bedtime 300 mL 1 5 025 Discontinued Encounters Date Type Department Care Team Description 08/10/2024 Telephone Gastroenterology - [address] [place] [phone] Libertad Cheng [place] 08/09/2024 3:50 PM EDT Lab Draw Station - [address] [place] [phone] Ulcerative (chronic) enterocolitis ([facility] V24, [facility] V28) (Primary Dx); Ulcerative pancolitis without complication ([facility] V24, [facility] V28) 08/09/2024 3:20 PM EDT Office Visit Gastroenterology - [address] [facility] [address] [place] [address] Sandy Mcdowell MD Gastroesophageal reflux disease without esophagitis (Primary Dx); Ulcerative pancolitis without complication ([facility] V24, [facility] V28) from Last 3 Months Surgical History Surgery Date Site/Laterality Comments PARTIAL GASTRECTOMY 03/30/2019 - 03/29/2020 sleeve gastrectomy TOTAL KNEE ARTHROPLASTY 10/28/2020 - 11/27/2020 COLONOSCOPY 10/28/2018 - 11/27/2018 TA x 1 ESOPHAGOGASTRODUODENOSCOPY 08/04/2011 mild gastritis COLONOSCOPY 08/04/2011 Bilateral nl ESOPHAGOGASTRODUODENOSCOPY 12/24/2021 no celiac, no h. pylori COLONOSCOPY W/ BIOPSIES 12/24/2021 moderately severe granados colitis Medical History Medical History Date Comments Ulcerative colitis ([facility] V24, [facility] V28) inital diagnosis GERD (gastroesophageal reflux disease) Asthma Family History Medical History Relation Name Comments Dementia Mother Relation Name Status Comments Father Mother Social History Tobacco Use Types Packs/Day Years Used Date Smoking Tobacco: Never Smokeless Tobacco: Never Alcohol Use Standard Drinks/Week Comments No 0 (1 standard drink = 0.6 oz pur e alcohol) Comments Unknown Sex and Gender Information Value Date Recorded Sex Assigned at Not on file Legal Sex Female 5:34 PM EST Gender Identity Not on file Sexual Orientation Not on file Obstetrics History Last Filed Vital Signs Vital Sign Reading Time Taken Comments Blood Pressure - - Pulse - - Temperature - - Respiratory Rate - - Oxygen Saturation - - Inhaled Oxygen Concentration - - Weight 83.9 kg (185 lb) 08/09/2024 3:13 PM EDT Height 157.5 cm (5' 2 ) 08/09/2024 3:13 PM EDT Body Mass Index 33.84 08/09/2024 3:13 PM EDT Plan of Treatment Upcoming Encounters Date Type Department Care Team (Late st Contact Info) Description 02/14/2025 3:40 PM EST Office Visit Gastroenterology - [address] [facility] [address] [place] [phone] Sandy Mcdowell MD [address] [facility] [address] [place] [address] Health Maintenance Due Date Last Done Comments Breast Cancer Screening 1955 DTaP,Tdap,and Td Vaccines (1 - Tdap) 06/13/1974 Pneumococcal Vaccine: 50+ Ye ars (1 of 2 - PCV) 06/13/1974 Zoster Vaccines (1 of 2) 06/13/2005 RSV Immunization Adult Patie nts (1 - Risk 60-74 years 1-dose series) 2015 Colorectal Cancer Screening: Colonoscopy 03/01/2022 Depression Screening 03/01/2022 Falls Risk Assessment 03/01/2022 Hepatitis C Screening 03/01/2022 Medicare Annual Wellness Visit 03/01/2022 Osteoporosis Screening (Bone Density Screening) 03/01/2022 Social Influencers of Health Screening 03/01/2022 COVID-19 Vaccine ( - 2023-2 5 season) 2023 Influenza Vaccine (Season Ended) 2024 HIB Vaccines Aged Out No longer eligi ble based on patient's age to complete this topic HPV Vaccines Aged Out No longer eligi ble based on patient's age to complete this topic Hepatitis A Vaccines Aged Out No long er eligible based on patient's age to complete this topic Hepatitis B Vaccines Aged Out No long er eligible based on patient's age to complete this topic IPV Vaccines Aged Out No longer eligi ble based on patient's age to complete this topic MMR Vaccines Aged Out No longer eligi ble based on patient's age to complete this topic Meningococcal ACWY Vaccine Aged Out N o longer eligible based on patient's age to complete this topic Meningococcal B Vaccine Aged Out No l onger eligible based on patient's age to complete this topic RSV Immunization Patients Un marija 20 months Aged Out No longer eligible b ased on patient's age to complete this topic Varicella Vaccines Aged Out No longer eligible based on patient's age to complete this topic Procedures Procedure Name Priority Date/Time Associated Diagnosis Comments CBC WITH AUTO DIFFERENTIAL Routine 08/09/2024 3:54 PM EDT Ulcerative pancolitis without complication (CMS/HCC V24, CMS/HCC V28) FERRITIN Routine 08/09/2024 3:54 PM EDT Ulcerative (chronic) enterocolitis (CMS/HCC V24, CMS/HCC V28) IRON AND TIBC Routine 08/09/2024 3:54 PM EDT Ulcerative (chronic) enterocolitis (CMS/HCC V24, CMS/HCC V28) VITAMIN D 25 HYDROXY Routine 08/09/2024 3:54 PM EDT Ulcerative pancolitis without complication (CMS/HCC V24, CMS/HCC V28) VITAMIN B12 Routine 08/09/2024 3:54 PM EDT Ulcerative pancolitis without complication (CMS/HCC V24, CMS/HCC V28) C-REACTIVE PROTEIN Routine 08/09/2024 3: 54 PM EDT Ulcerative pancolitis without complication (CMS/HCC V24, CMS/HCC V28) COMPREHENSIVE METABOLIC PANEL Routine 08/09/2024 3:54 PM EDT Ulcerative pancolitis without complication (CMS/HCC V24, CMS/HCC V28) CBC AND DIFFERENTIAL Routine 08/09/2024 3:54 PM EDT Ulcerative pancolitis without complication (CMS/HCC V24, CMS/HCC V28) from Last 3 Months Results * (ABNORMAL) CBC auto differential (08/09/2024 3:54 PM EDT) WBC 6.2 4.8 - 10.8 K/mcL LAB HEMETOLOGY METHOD 08/09/2024 4:24 PM EDT [facility] RBC 3.60(L) 3.80 - 4.80 M/mcL LAB HEMETOLOGY METHOD 08/09/2024 4:24 PM EDT [facility] Hemoglobin 10.3(L) 11.5 - 16.0 g/dL LAB HEMETOLOGY METHOD 08/09/2024 4:24 PM EDT [facility] Hematocrit 32.4(L) 35.0 - 47.0 % LAB HEMETOLOGY METHOD 08/09/2024 4:24 PM EDT [facility] MCV 89.5 79.0 - 98.0 FL LAB HEMETOLOGY METHOD 08/09/2024 4:24 PM EDT [facility] MCH 28.5 27.0 - 32.0 pcg LAB HEMETOLOGY METHOD 08/09/2024 4:24 PM EDT [facility] MCHC 31.8(L) 32.0 - 37.0 g/dL LAB HEMETOLOGY METHOD 08/09/2024 4:24 PM EDT [facility] RDW 13.5 11.0 - 15.0 % LAB HEMETOLOGY METHOD 08/09/2024 4:24 PM EDT [facility] Platelets 349 130 - 400 K/mcL LAB HEMETOLOGY METHOD 08/09/2024 4:24 PM EDT [facility] MPV 9.9 7.0 - 11.0 FL LAB HEMETOLOGY METHOD 08/09/2024 4:24 PM EDT [facility] NRBC 0.0 <1.0 % LAB HEMETOLOGY METHOD 08/09/2024 4:24 PM EDT [facility] NRBC Absolute 0.00 <0.10 K/mcL LAB HEMETOLOGY METHOD 08/09/2024 4:24 PM EDT [facility] Neutrophils Relative 39.6 % LAB HEMETOLOGY METHOD 08/09/2024 4:24 PM EDT [facility] Lymphocytes Relative 49.6 % [facility] Monocytes Relative 9.6 % LAB HEMETOLOGY METHOD 08/09/2024 4:24 PM EDT [facility] Eosinophils Relative 0.8 % LAB HEMETOLOGY METHOD 08/09/2024 4:24 PM EDT [facility] Basophils Relative 0.2 % LAB HEMETOLOGY METHOD 08/09/2024 4:24 PM EDT [facility] Immature Granulocytes Relative 0.2 % LAB HEMETOLOGY METHOD 08/09/2024 4:24 PM EDT [facility] Neutrophils Absolute 2.45 1.50 - 7.00 K/mcL LAB HEMETOLOGY METHOD 08/09/2024 4:24 PM EDT [facility] Lymphocytes Absolute 3.06 1.00 - 5.00 K/mcL LAB HEMETOLOGY METHOD 08/09/2024 4:24 PM EDT [facility] Monocytes Absolute 0.59 0.20 - 1.00 K/mcL LAB HEMETOLOGY METHOD 08/09/2024 4:24 PM EDT [facility] Eosinophils Absolute 0.05 0.00 - 0.50 K/mcL LAB HEMETOLOGY METHOD 08/09/2024 4:24 PM EDT [facility] Basophils Absolute 0.01 0.00 - 0.20 K/mcL LAB HEMETOLOGY METHOD 08/09/2024 4:24 PM EDT [facility] Immature Granulocytes Absolute 0.01 0.00 - 0.03 K/mcL LAB HEMETOLOGY METHOD 08/09/2024 4:24 PM EDT [facility] Blood Venous blood specimen / Unknown Venipuncture / Unknown 08/09/2024 3:54 PM EDT 08/09/2024 4:10 PM EDT us Sandy Mcdowell MD LAB BLOOD ORDERABLES Final Res ult [facility] [address] [place] [address], * Iron and TIBC (08/09/2024 3:54 PM EDT) Iron 71 40 - 150 mcg/dL LAB CHEMISTRY METHOD 08/09/2024 5:06 PM EDT [facility] TIBC 435 250 - 450 mcg/dL LAB CHEMISTRY METHOD 08/09/2024 5:06 PM EDT [facility] Iron Saturation 16 15 - 50 % LAB CHEMISTRY METHOD 08/09/2024 5:06 PM EDT [facility] Blood Venous blood specimen / Unknown Venipuncture / Unknown 08/09/2024 3:54 PM EDT 08/09/2024 4:10 PM EDT us Sandy Mcdowell MD LAB BLOOD ORDERABLES Final Res ult Performing Organization Address [facility] de Phone Number [facility] [address] [place] [address], [place] [phone] * (ABNORMAL) Vitamin D 25 hydroxy (08/09/2024 3:54 PM EDT) Pathologist [facility] Vit D, 25-Hydroxy 24.9(L) 30.0 - 80.0 ng/mL LAB CHEMISTRY METHOD 08/09/2024 5:36 PM EDT [facility] Blood Venous blood specimen / Unknown Venipuncture / Unknown 08/09/2024 3:54 PM EDT 08/09/2024 4:10 PM EDT us Sandy Mcdowell MD LAB BLOOD ORDERABLES Final Res ult Performing Organization Address [facility]/ZIP Co de Phone Number [facility] [address] [place] [address], [place] [phone] * C-reactive protein (08/09/2024 3:54 PM EDT) [facility] C-Reactive Protein 0.30 <=0.50 mg/dL LAB CHEMISTRY METHOD 08/09/2024 5:06 PM EDT [facility] Blood Venous blood specimen / Unknown Venipuncture / Unknown 08/09/2024 3:54 PM EDT 08/09/2024 4:10 PM EDT Sandy Mcdowell MD LAB BLOOD ORDERABLES Final Res ult Performing Organization Address [facility]/ZIP Co de Phone Number [facility] [address] [place] [address], [place] [phone] * (ABNORMAL) Ferritin (08/09/2024 3:54 PM EDT) Pathologist [facility] Ferritin 6(L) 8 - 252 ng/mL LAB CHEMISTRY METHOD 08/09/2024 5:33 PM EDT [facility] Blood Venous blood specimen / Unknown Venipuncture / Unknown 08/09/2024 3:54 PM EDT 08/09/2024 4:10 PM EDT us Sandy Mcdowell MD LAB BLOOD ORDERABLES Final Res ult Performing Organization Address [facility]/ZIP Co de Phone Number [facility] [address] [place] [address], [place] [phone] * (ABNORMAL) Vitamin B12 (08/09/2024 3:54 PM EDT) [facility] Vitamin B-12 >2,000(H) 250 - 900 pcg/mL LAB CHEMISTRY METHOD 08/09/2024 5:29 PM EDT [facility] Blood Venous blood specimen / Unknown Venipuncture / Unknown 08/09/2024 3:54 PM EDT 08/09/2024 4:10 PM EDT us Sandy Mcdowell MD LAB BLOOD ORDERABLES Final Res ult Performing Organization Address City/[facility]/ZIP Co de Phone Number [facility] [address] [place] [address], [place] [phone] * (ABNORMAL) Comprehensive metabolic panel (08/09/2024 3:54 PM EDT) Sodium 140 133 - 145 mmol/L LAB CHEMISTRY METHOD 08/09/2024 5:29 PM [facility] Potassium 4.2 3.5 - 5.5 mmol/L LAB CHEMISTRY METHOD 08/09/2024 5:29 PM [facility] Chloride 105 96 - 110 mmol/L LAB CHEMISTRY METHOD 08/09/2024 5:29 PM [facility] CO2 30 21 - 32 mmol/L LAB CHEMISTRY METHOD 08/09/2024 5:29 PM [facility] Anion Gap 5 3 - 11 LAB CHEMISTRY METHOD 08/09/2024 5:29 PM [facility] Glucose 132(H) 70 - 100 mg/dL LAB CHEMISTRY METHOD 08/09/2024 5:29 PM [facility] BUN 12 5 - 25 mg/dL LAB CHEMISTRY METHOD 08/09/2024 5:29 PM [facility] Creatinine 0.73 0.50 - 1.10 mg/dL LAB CHEMISTRY METHOD 08/09/2024 5:29 PM [facility] eGFR 89 >=60 mL/min/1. 73m2 LAB CHEMISTRY METHOD 08/09/2024 5:29 PM [facility] Comment:Calculation based on the Chronic Kidney Disease Epidemiology Collaboration (CKD-EPI) equation refit without adjustment for race. BUN/Creatinine Ratio 16.4 LAB CHEMISTRY METHOD 08/09/2024 5:29 PM [facility] Calcium 8.7 8.5 - 10.5 mg/dL LAB CHEMISTRY METHOD 08/09/2024 5:29 PM [facility] AST (SGOT) 22 10 - 42 unit/L LAB CHEMISTRY METHOD 08/09/2024 5:29 PM [facility] ALT (SGPT) 36 10 - 60 unit/L LAB CHEMISTRY METHOD 08/09/2024 5:29 PM EDT [facility] Alkaline Phosphatase 122(H) 42 - 121 unit/L LAB CHEMISTRY METHOD 08/09/2024 5:29 PM EDT [facility] Total Protein 6.1 6.0 - 8.0 g/dL LAB CHEMISTRY METHOD 08/09/2024 5:29 PM EDT [facility] Albumin 3.3 3.2 - 5.0 g/dL LAB CHEMISTRY METHOD 08/09/2024 5:29 PM EDT [facility] Total Bilirubin 0.2 0.0 - 1.4 mg/dL LAB CHEMISTRY METHOD 08/09/2024 5:29 PM EDT [facility] Blood Venous blood specimen / Unknown Venipuncture / Unknown 08/09/2024 3:54 PM EDT 08/09/2024 4:10 PM EDT us Sandy Mcdowell MD LAB BLOOD ORDERABLES Final Res ult [facility] [address] [place] [address], from Last 3 Months Insurance MEDICAID - [place] [employer] MEDICARE ADVANTAGE Care Teams Cloth Winding Supervisor Relationship Specialty Start Date End Date Sandy Storm MD [address] [place] [phone] PCP - General Internal Medicine 05/24/18
== END 2024-09-16 12:03 | disposition home or self-care (01) ==
LOC: HO.HMCC 11:14
PROVIDERS: PCP Internal Medicine; Visit Provider Internal Medicine
DX: E11.9 Type 2 diabetes mellitus without complications (principal); K51.90 Ulcerative colitis, unspecified, without complications; J45.909 Unspecified asthma, uncomplicated; R60.9 Edema, unspecified; Z13.9 Encounter for screening, unspecified

== ENCOUNTER → 2024-09-16 11:13 | Outpatient (BNVA) | payer MEDICARE, SELFPAY | PROVIDERS: PCP Internal Medicine; Visit Provider Internal Medicine | DX: E11.9 Type 2 diabetes mellitus without complications (principal); K51.90 Ulcerative colitis, unspecified, without complications; J45.909 Unspecified asthma, uncomplicated; R60.9 Edema, unspecified | CPT/HCPCS: 82948; 96127; 99212 ==

== ENCOUNTER 2024-10-28 06:33 | Outpatient (REF) | payer MEDICARE, SELFPAY ==
[2024-10-28 10:53] LABS: MANUAL DIFF FLAG NO
[2024-10-28 11:02] LABS: Hematocrit 33.2 % (37.0-47.0); Hemoglobin 10.8 g/dl (12.0-16.0); Imm Gran Abs Auto 0.02 X10*3/uL (0.00-0.03); Imm Gran Pct Auto 0.3 % (0.0-0.4); Lymphocytes Absolute Auto 1.8 X10*3/uL (1.2-4.9); Mean Corpuscular HGB Conc 32.5 g/dl (31.0-35.0); Mean Corpuscular Hemoglobin 28.3 pg (27.0-33.0); Mean Corpuscular Volume 86.9 fL (80.0-98.0); NRBC Abs Auto 0.000 X10*3/uL (0.0-0.012); NRBC Pct Auto 0.0 /100WBC (0.0-0.2); Platelet Count 345 X10*3/uL (160-400); Red Blood Count 3.82 X10*6/uL (4.20-5.50); White Blood Count 7.3 X10*3/uL (4.8-10.8)
[2024-10-28 11:50] LABS: Alanine Aminotransferase 38 U/L (0-31); Albumin Level 3.9 g/dL (3.5-5.0); Alkaline Phosphatase 120 U/L (39-117); Anion Gap 10 (12-20); Aspartate Amino Transferase 31 U/L (5-31); Blood Urea Nitrogen 16 mg/dL (9-16); Calcium 8.8 mg/dL (8.4-10.2); Carbon Dioxide 29 mmol/L (22-29); Chloride 106 mmol/L (96-108); Cholesterol 203 mg/dL (<200); Estimated Glomerular Filt Rate > 60; HDL Cholesterol 75 mg/dL (>40); Iron 107 mcg/dL (30-160); Percent Iron Saturation 29 % (15-50); Potassium 3.9 mmol/L (3.3-5.1); Sodium 141 mmol/L (135-145); Total Iron Binding Capacity 371 mcg/dL (228-428); Total Protein 6.4 g/dL (6.5-8.0); Triglycerides 83 mg/dL (<150); Unsaturated Iron Binding 264 ug/dL
[2024-10-28 12:34] LABS: Hemoglobin A1C 161.9142 umol/L; Total Hemoglobin (HGBA1C) 2886.0366 umol/L
== END 2024-10-28 06:34 | disposition home or self-care (01) ==
LOC: HO.HMGCLDS 06:33
PROVIDERS: PCP Internal Medicine; Visit Provider Internal Medicine
DX: E11.9 Type 2 diabetes mellitus without complications (principal); J45.909 Unspecified asthma, uncomplicated; R60.0 Localized edema
CPT/HCPCS: 36415; 80053; 80061; 82043; 82570; 83036; 83540; 85025; 99212

== ENCOUNTER 2024-10-28 13:22 | Outpatient (AMB) | payer MEDICARE, SELFPAY ==
[2024-10-28 13:28] VITALS: BP 118/76; PULSE 60; RESP 18; TEMP 36.7; O2SAT 95; BMI 34.6
--- NOTE | 2024-10-28 13:28 | A.OFFPC_ITS ---
Vital Signs 10/28/24 13:28 Height 5 ft Weight 177 lb BMI 34.6 BP 118/76 Blood Pressure Location Lt brachial Position Sitting Respiration 18 Pulse 60 Pulse Source Pulse Oximeter Temp 98.0 F Temp Source Oral Pulse Oximetry (%) 95 Oxygen Delivery Method Room Air Intake Visit Reasons: 6 weeks f/up Intake Note: Pt is here today for 6 weeks follow up visit. Allergies No Known Allergies (No Known Allergies*) Allergy (Verified 10/28/24 13:41) Medication List - Last Reconciled 10/28/24 by Sandy Storm MD albuterol sulfate 90 mcg/actuation 2 puffs inhalation Q6H PRN albuterol sulfate 1.25 mg (3 mL) inhalation QID PRN alendronate (Fosamax) 70 mg PO QWEEK biotin 10 mg PO DAILY blood sugar diagnostic (Clean EnginesTouch Ultra Test strips) 1 qd blood-glucose meter (Clean EnginesTouch Ultra2 Meter) As directed Breo Ellipta 200-25 mcg/dose (fluticasone furoate-vilanterol) 1 inh inhalation DAILY NS cholecalciferol (vitamin D3) 50 mcg PO DAILY estradiol 0.01%(0.1mg/gram) 0.25 appful vaginal DAILY furosemide (Lasix) 20 mg PO DAILY mecobalamin (vitamin B12) 1,000 mcg PO DAILY montelukast 10 mg PO DAILY nebulizers For updraft treatments 4 times per day omeprazole 20 mg PO BID upadacitinib ER (Rinvoq) 30 mg PO DAILY Tobacco use date assessed: 10/28/24 Fall risk assessment: No Falls in past year Last assessed Fall Risk: 10/28/24 Dental Screening Dental Screen Date: 09/16/24 HPI 6 weeks f/up HPI Details Pt presents for f/u of type 2 diabetes. 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 Patient became very anxious and frustrated trying to use glucometer. Chronic asthma is stable on Breo. Chronic lower extremity edema is controlled on few furosemide as needed [facility] Medical History (Updated 10/28/24 @ 16:12 by Sandy Storm MD) Diabetes type 2 [place] (dyspnea on exertion) GERD (gastroesophageal reflux disease) Ulcerative colitis Skin cancer Chronic back pain Annual physical exam Surgical History S/P knee replacement H/O colonoscopy Family History Father No problems noted. Mother Diabetes Social History Housing: House Patient Tobacco Use Status: Never used Tobacco e-Cigarette/Vaping Use: Never Used service: No Current occupational status: retired Cognitive needs: No Hearing needs: No Vision needs: Yes Questionnaire Thrive Questionnaire Date Thrive assessed: 09/16/24 I am a: Patient What is your living situation today?: I have a steady place to live Within the past 12 months, did the food you bought not last and you didn't have the money to get more?: I choose not to answer this question Within the past 12 months, did you worry whether your food would run out before you got money to buy more?: I choose not to answer this question Do you have trouble paying for medicines?: I choose not to answer this question Do you have trouble getting transportation to medical appointments?: I choose not to answer this question Do you have trouble paying your heating and electricity bill?: I choose not to answer this question Do you have trouble taking care of your child, family member or friend?: I choose not to answer this question Do you have trouble with day-to-day activities such as bathing, preparing meals, shopping, managing finances, etc.?: I choose not to answer this question Are you currently unemployed and looking for a job?: I choose not to answer this question Are you interested in more education?: I choose not to answer this question Please select the resources that you would like help with: None Currently or been in a relationship where the following occur: I choose not to answer THRIVE Score: 0 MAJO-7 AMB Questionnaire MAJO-7 Date AMJO - 7 assessed: 09/16/24 Source: Developed by Drs. Wicho Mendez, Tessa Dukes, Tim Aburto and colleagues, with an educational hermilo from [employer]. Review of Systems Const All systems reviewed & are unremarkable except as noted in HPI and below Eyes Reports no additional complaints Card Reports no additional complaints Resp Reports no additional complaints GI Reports no additional complaints Reports no additional complaints Physical exam (Primary Care) Vital Signs: Last Vital Signs Temp 98.0 F 10/28/24 13:28 Pulse 60 10/28/24 13:28 Resp 18 10/28/24 13:28 BP 118/76 10/28/24 13:28 Pulse Ox 95 10/28/24 13:28 Oxygen Delivery Method Room Air 10/28/24 13:28 BMI result Body Mass Index 34.6 Tobacco/Smoking Status: Tobacco use Status Tobacco use date assessed 10/28/24 10/28/24 13:43 Patient Tobacco Use Status Never used Tobacco 10/28/24 13:28 e-Cigarette/Vaping Use Never Used 10/28/24 13:28 Thrive Assessment: Date of Thrive Assessment Date Thrive assessed 09/16/24 10/28/24 13:28 Currently or been in a relationship where the following occur: I choose not to answer Const General: no acute distress HENMT Head: Yes normal to inspection Eyes General: appearance normal, both eyes and all related structures Resp Effort & Inspection: normal respiratory effort Auscultation: clear to auscultation bilaterally Cardio Rhythm: regular rhythm Heart sounds: S1 normal heart sound present and S2 normal heart sound present Coding Level of Care Code Est Pt Level 4 (10089) Diagnoses Diabetes type 2 E11.9 Asthma J45.909 Edema R60.9 Assessment & Plan Assessment & Plan (1) Diabetes type 2: Code(s): E11.9 - Type 2 diabetes mellitus without complications Category: Medical Plan: A1c is down to 7.4 from 7.7. ADA diet increasing physical activity weight loss discussed with the patient. Metformin 750 will be added and patient will follow-up in 3 months with a fasting labs before (2) Asthma: Code(s): J45.909 - Unspecified asthma, uncomplicated Category: Medical Plan: Continue Breo and albuterol prn (3) Edema: Comment: Dependent lower extremities, controlled on furosemide Code(s): R60.9 - Edema, unspecified Category: Medical Plan: Continue furosemide elevation lower extremity increasing physical activity discussed with the patient Orders: Orders TSH reflex Free T4 3 Months E11.9 - Type 2 diabetes mellitus without complications Hemoglobin A1c 3 Months E11.9 - Type 2 diabetes mellitus without complications Comprehensive [place]. Panel Fast 3 Months E11.9 - Type 2 diabetes mellitus without complications Lipid Panel 3 Months E11.9 - Type 2 diabetes mellitus without complications Medications: Refilled furosemide (Lasix) 20 mg PO DAILY 90 tabs 1RF
== END 2024-10-28 14:39 | disposition home or self-care (01) ==
LOC: HO.HMCC 13:23
PROVIDERS: PCP Internal Medicine; Visit Provider Internal Medicine
DX: E11.9 Type 2 diabetes mellitus without complications (principal); J45.909 Unspecified asthma, uncomplicated; R60.9 Edema, unspecified

== ENCOUNTER 2025-02-09 13:26 | Outpatient (AMB) | payer MEDICARE, MEDICAID, SELFPAY ==
--- NOTE | 2025-02-09 13:38 | MHC.PC.OV ---
Vital Signs 02/09/25 13:39 Height 5 ft Weight 161 lb BMI 31.4 BP 124/76 Blood Pressure Location Lt brachial Position Sitting Respiration 16 Pulse 75 Pulse Source Pulse Oximeter Temp 98.2 F Temp Source Oral Pulse Oximetry (%) 96 Oxygen Delivery Method Room Air Intake Visit Reasons: sore on foot Intake Note: Pt is here today for a sick visit. Pt c/o painful callus of her L foot. Allergies No Known Allergies (No Known Allergies*) Allergy (Verified 02/09/25 13:53) Tobacco use date assessed: 02/09/25 Fall risk assessment: No Falls in past year Last assessed Fall Risk: 02/09/25 Dental Screening Dental Screen Date: 02/09/25 Did you have a dental visit in the last 12 months?: Yes Did you have a dental problem in the last 6 months where you did not have access to dental care?: No Was dental information given to patient?: Patient has dentist HPI sore on foot HPI Details Pt complains of 2nd toe callus getting larger and more painful and patient is walking. She tried using [id number] house removal cream without improvement. For type 2 diabetes she has been following ADA diet and exercising regularly. She lost 15 lb and reports fasting blood glucose between 100 and 120. Chronic asthma stable on Breo Ellipta [facility] Medical History (Updated 02/09/25 @ 14:56 by Sandy Storm MD) Vitamin D deficiency Callus between toes Diabetes type 2 [place] (dyspnea on exertion) GERD (gastroesophageal reflux disease) Ulcerative colitis Skin cancer Chronic back pain Annual physical exam Surgical History S/P knee replacement H/O colonoscopy Family History Father No problems noted. Mother Diabetes Social History Housing: House Patient Tobacco Use Status: Never used Tobacco e-Cigarette/Vaping Use: Never Used service: No Current occupational status: retired Cognitive needs: No Hearing needs: No Vision needs: Yes Questionnaire Thrive Questionnaire Date Thrive assessed: 09/16/24 I am a: Patient What is your living situation today?: I have a steady place to live Within the past 12 months, did the food you bought not last and you didn't have the money to get more?: I choose not to answer this question Within the past 12 months, did you worry whether your food would run out before you got money to buy more?: I choose not to answer this question Do you have trouble paying for medicines?: I choose not to answer this question Do you have trouble getting transportation to medical appointments?: I choose not to answer this question Do you have trouble paying your heating and electricity bill?: I choose not to answer this question Do you have trouble taking care of your child, family member or friend?: I choose not to answer this question Do you have trouble with day-to-day activities such as bathing, preparing meals, shopping, managing finances, etc.?: I choose not to answer this question Are you currently unemployed and looking for a job?: I choose not to answer this question Are you interested in more education?: I choose not to answer this question Please select the resources that you would like help with: None Currently or been in a relationship where the following occur: I choose not to answer THRIVE Score: 0 MAJO-7 AMB Questionnaire MAJO-7 Date MAJO - 7 assessed: 09/16/24 Source: Developed by Drs. Wicho Mendez, Tessa Dukes, Tim Aburto and colleagues, with an educational hermilo from [employer]. Review of Systems Const All systems reviewed & are unremarkable except as noted in HPI and below Eyes Reports no additional complaints ENT Reports no additional complaints Card Reports no additional complaints Resp Reports no additional complaints GI Reports no additional complaints Reports no additional complaints Physical exam (Primary Care) Vital Signs: Last Vital Signs Temp 98.2 F 02/09/25 13:39 Pulse 75 02/09/25 13:39 Resp 16 02/09/25 13:39 BP 124/76 02/09/25 13:39 Pulse Ox 96 02/09/25 13:39 Oxygen Delivery Method Room Air 02/09/25 13:39 BMI result Body Mass Index 31.4 Tobacco/Smoking Status: Tobacco use Status Tobacco use date assessed 02/09/25 02/09/25 13:55 Patient Tobacco Use Status Never used Tobacco 02/09/25 13:39 e-Cigarette/Vaping Use Never Used 02/09/25 13:39 Thrive Assessment: Date of Thrive Assessment Date Thrive assessed 09/16/24 02/09/25 13:39 Currently or been in a relationship where the following occur: I choose not to answer Const General: no acute distress HENMT Face and sinus: Yes normal facial exam Resp Effort & Inspection: normal respiratory effort Auscultation: clear to auscultation bilaterally Cardio Rhythm: regular rhythm Heart sounds: S1 normal heart sound present and S2 normal heart sound present GI Inspection: Yes normal to inspection Palpation (GI): Soft to palpation Extrem Other: Left 2nd toe medial aspect callus present no bleeding General: Yes no clubbing, cyanosis or edema Results AMB Hemoglobin A1c AMB Hemoglobin A1c 6.1 % Last Edit by LONA Erickson on 02/09/25 14:24 Coding Level of Care Code Est Pt Level 4 (07039) Diagnoses Anemia D64.9 Diabetes type 2 E11.9 Ulcerative colitis K51.90 Callus between toes L84 Assessment & Plan Assessment & Plan (1) Anemia: Code(s): D64.9 - Anemia, unspecified Category: Medical Plan: Monitor CBC check iron count (2) Diabetes type 2: Comment: Diet control A1c is 6.1 in January 2025 Code(s): E11.9 - Type 2 diabetes mellitus without complications Category: Medical Plan: A1c is 6.1 today. Continue ADA diet regular exercise patient will follow-up in February (3) Ulcerative colitis: Comment: on Tho, f/u Code(s): K51.90 - Ulcerative colitis, unspecified, without complications Category: Medical Plan: Follow-up with GI (4) Callus between toes: Comment: 2 toe, left Code(s): L84 - Corns and callosities Category: Medical Plan: Referred to Podiatry Orders: Orders Comprehensive [place]. Panel Fast Today D64.9 - Anemia, unspecified, E11.9 - Type 2 diabetes mellitus without complications, E55.9 - Vitamin D deficiency, unspecified Complete Blood Count Auto Diff Today D64.9 - Anemia, unspecified, E11.9 - Type 2 diabetes mellitus without complications, E55.9 - Vitamin D deficiency, unspecified Lipid Panel Today D64.9 - Anemia, unspecified, E11.9 - Type 2 diabetes mellitus without complications, E55.9 - Vitamin D deficiency, unspecified Microalbumin, Random (w Creat) Today D64.9 - Anemia, unspecified, E11.9 - Type 2 diabetes mellitus without complications, E55.9 - Vitamin D deficiency, unspecified AMB Hemoglobin A1c Today Z13.9 - Encounter for screening, unspecified Vitamin B12 and Folate Today D64.9 - Anemia, unspecified, E11.9 - Type 2 diabetes mellitus without complications, E55.9 - Vitamin D deficiency, unspecified IRON PROFILE Today D64.9 - Anemia, unspecified, E11.9 - Type 2 diabetes mellitus without complications, E55.9 - Vitamin D deficiency, unspecified Vitamin D 25-OH Total Today D64.9 - Anemia, unspecified, E11.9 - Type 2 diabetes mellitus without complications, E55.9 - Vitamin D deficiency, unspecified Referrals Podiatry Referral L84 - Corns and callosities
[2025-02-09 13:39] VITALS: BP 124/76; PULSE 75; RESP 16; TEMP 36.8; O2SAT 96; BMI 31.4
--- OUTSIDE RECORDS SUMMARY | 2025-02-09 16:45 | XMS_ITS | Clinical Summary ---
Author Organization [facility] [address] [facility] Address [address] [place] [address] Phone Care Team Providers Care Asset Specialist Name Role Phone Sandy Storm MD Primary Care Provider [phone] Allergies No known active allergies Medications omeprazole (PriLOSEC) [address] capsuleIndication s:Gastroesophagea l reflux disease without esophagitis TAKE 1 CAPSULE BY MOUTH TWICE A DAY 180 capsule 5 5 Active cyanocobalamin, vitamin B-12, (VITAMIN B-12 ORAL) Take by mouth. Active sucralfate (CARAFATE) 100 mg/mL suspensionIndicat ions:Gastroesopha geal reflux disease without esophagitis TAKE 10 ML (1 G TOTAL) BY MOUTH 1 (ONE) TIME EACH DAY IN THE EVENING. TAKE 1 HOUR BEFORE MEALS AND AT BEDTIME 900 mL 2 5 05/29/19 26 Active upadacitinib (Rinvoq) 30 mg tablet extended release 24 hrIndications:Gas troesophageal reflux disease without esophagitis,Ulcer ative pancolitis without complication (CMS/HCC V24, CMS/HCC V28) TAKE 1 TABLET BY MOUTH EVERY DAY 30 tablet 3 5 Active Surgical History Surgery Date Site/Laterality Comments PARTIAL GASTRECTOMY 03/30/2019 - 03/29/2020 sleeve gastrectomy TOTAL KNEE ARTHROPLASTY 10/28/2020 - 11/27/2020 COLONOSCOPY 10/28/2018 - 11/27/2018 TA x 1 ESOPHAGOGASTRODUODENOSCOPY 08/04/2011 mild gastritis COLONOSCOPY 08/04/2011 Bilateral nl ESOPHAGOGASTRODUODENOSCOPY 12/24/2021 no celiac, no h. pylori COLONOSCOPY W/ BIOPSIES 12/24/2021 moderately severe granados colitis Medical History Medical History Date Comments Ulcerative colitis ([facility] V24, [facility] V28) inital diagnosis GERD (gastroesophageal reflux disease) [...] Office Visit Gastroenterology - [address] [facility] [address] [place] [phone] Sandy Mcdowell MD 299 [facility] [address] [place] [id number] Health Maintenance Due Date Last Done Comments Breast Cancer Screening 1955 Colorectal Cancer Screening: Colonoscopy 1955 DTaP,Tdap,and Td Vaccines (1 - Tdap) 06/13/1974 Pneumococcal Vaccine: 50+ Ye ars (1 of 2 - PCV) 06/13/1974 RSV Immunization Adult Patie nts (1 - Risk 50-74 years 1-dose series) 06/13/2005 Zoster Vaccines (1 of 2) 06/13/2005 Falls Risk Assessment 03/01/2022 Hepatitis C Screening 03/01/2022 Medicare Annual Wellness Visit 03/01/2022 Osteoporosis Screening (Bone Density Screening) 03/01/2022 Social Influencers of Health Screening 03/01/2022 Depression Screening 03/30/2024 COVID-19 Vaccine (1 - 2024-2 6 season) 2024 Influenza Vaccine (#1) 2024 HIB Vaccines Aged Out No longer [...] on patient's age to complete this topic Insurance [place] - [place] MEDICARE ADVANTAGE Care Teams Asset Specialist Relationship Specialty Start Date End Date Sandy Storm MD [address] [place] [address] PCP - General Internal Medicine 05/24/18
== END 2025-02-09 14:57 | disposition home or self-care (01) ==
PROVIDERS: PCP Internal Medicine; Visit Provider Internal Medicine
DX: D64.9 Anemia, unspecified (principal); E11.9 Type 2 diabetes mellitus without complications; K51.90 Ulcerative colitis, unspecified, without complications; L84 Corns and callosities; Z13.9 Encounter for screening, unspecified

== ENCOUNTER → 2025-02-09 13:26 | Outpatient (BNVA) | payer MEDICARE, SELFPAY | PROVIDERS: PCP Internal Medicine; Visit Provider Internal Medicine | DX: E11.9 Type 2 diabetes mellitus without complications (principal); L84 Corns and callosities; J45.909 Unspecified asthma, uncomplicated; D64.9 Anemia, unspecified; K51.90 Ulcerative colitis, unspecified, without complications; E55.9 Vitamin D deficiency, unspecified | CPT/HCPCS: 83036; 99212 ==

== ENCOUNTER 2025-02-27 06:41 | Outpatient (REF) | payer MEDICARE, MEDICAID, SELFPAY ==
--- OUTSIDE RECORDS SUMMARY | 2025-02-27 06:43 | XMS_ITS | Clinical Summary ---
Author Organization [facility] 299 [facility] Address [address] [place] [address] Phone Care Team Providers Care Therapeutic Program Worker Name Role Phone Sandy Storm MD Primary Care Provider [phone] Allergies Active Allergy Reactions Criticality Noted Date Comments Apple 02/14/2025 Other Reaction(s): face/tongue swelling [place] 02/14/2025 Other Reaction(s): face/tongue swelling Tree Nuts 02/14/2025 Medications omeprazole (PriLOSEC) [address] capsuleIndicatio ns:Gastroesophag eal reflux disease without esophagitis TAKE 1 CAPSULE BY MOUTH TWICE A DAY 180 capsule 5 5 Active cyanocobalamin, vitamin B-12, (VITAMIN B-12 ORAL) Take by mouth. Activ e sucralfate (CARAFATE) 100 mg/mL suspensionIndica tions:Gastroesop hageal reflux disease without esophagitis TAKE 10 ML (1 G TOTAL) BY MOUTH 1 (ONE) TIME EACH DAY IN THE EVENING. TAKE 1 HOUR BEFORE MEALS AND AT BEDTIME 900 mL 2 5 05/29/19 26 Active Additional Information Patient not taking.Reported on 02/14/2025 upadacitinib (Rinvoq) 30 mg tablet extended release 24 hrIndications:Ga stroesophageal reflux disease without esophagitis,Ulce rative pancolitis without complication (CMS/HCC V24, CMS/HCC V28) TAKE 1 TABLET BY MOUTH EVERY DAY 30 tablet 3 5 Active multivitamin with minerals tablet Take 1 tablet by mouth 1 (one) time each day. Active BIOTIN ORAL Take by mouth. Act mario cholecalciferol (VITAMIN D-3) 25 mcg (1,000 unit) tablet Take 1 tablet (1,000 Units total) by mouth 1 (one) time each day. Active Encounters Date Type Department Care Team Description 02/14/2025 3:40 PM EST Office Visit Gastroenterology - 299 [facility] 299 [facility] [address] [place] [address] Sandy Mcdowell MD Gastroesophageal reflux disease without esophagitis (Primary Dx); Ulcerative pancolitis without complication ([facility] V24, [facility] V28) from Last 3 Months Surgical History Surgery Date Site/Laterality Comments PARTIAL GASTRECTOMY 03/30/2019 - 03/29/2020 sleeve gastrectomy TOTAL KNEE ARTHROPLASTY 10/28/2020 - 11/27/2020 COLONOSCOPY 10/28/2018 - 11/27/2018 TA x 1 ESOPHAGOGASTRODUODENOSCOPY 08/04/2011 mild gastritis COLONOSCOPY 08/04/2011 Bilateral nl ESOPHAGOGASTRODUODENOSCOPY 12/24/2021 no celiac, no h. pylori COLONOSCOPY W/ BIOPSIES 12/24/2021 moderately severe granados colitis Medical History Medical History Date Comments Ulcerative colitis ([facility] V24, [facility] V28) inital diagnosis GERD (gastroesophageal reflux disease) [...] - Inhaled Oxygen Concentration - - Weight 72.7 kg (160 lb 3.2 oz) 02/14/2025 3:07 P M EST Height 152.4 cm (5') 02/14/2025 3:07 PM EST Body Mass Index 31.29 02/14/2025 3:07 PM EST Plan of Treatment Upcoming Encounters Date Type Department Care Team (Late st Contact Info) Description 03/09/2025 2:15 PM EST Consult Orthopedic Surgery - [place] [address] [facility] [address] [place] [phone] Adan Montano, DPM 175 [facility] [address] [place] [address] Health Maintenance Due Date Last Done Comments [...] to complete this topic Insurance [place] - [place] AET[place] MEDICARE ADVANTAGE Care Teams Therapeutic Program Worker Relationship Specialty Start Date End Date Sandy Storm MD [address] [place] [phone] PCP - General Internal Medicine 05/24/18
[2025-02-27 10:48] LABS: MANUAL DIFF FLAG NO
[2025-02-27 11:13] LABS: Hematocrit 35.7 % (37.0-47.0); Hemoglobin 11.6 g/dl (12.0-16.0); Imm Gran Abs Auto 0.04 X10*3/uL (0.00-0.03); Imm Gran Pct Auto 0.7 % (0.0-0.4); Lymphocytes Absolute Auto 1.7 X10*3/uL (1.2-4.9); Mean Corpuscular HGB Conc 32.5 g/dl (31.0-35.0); Mean Corpuscular Hemoglobin 28.7 pg (27.0-33.0); Mean Corpuscular Volume 88.4 fL (80.0-98.0); NRBC Abs Auto 0.000 X10*3/uL (0.0-0.012); NRBC Pct Auto 0.0 /100WBC (0.0-0.2); Platelet Count 370 X10*3/uL (160-400); Red Blood Count 4.04 X10*6/uL (4.20-5.50); White Blood Count 6.1 X10*3/uL (4.8-10.8)
[2025-02-27 11:31] LABS: Microalbum/Creatinine Ratio Ur 8.4 ug/mg cr (<30)
[2025-02-27 11:51] LABS: Alanine Aminotransferase 22 U/L (0-31); Albumin Level 4.1 g/dL (3.5-5.0); Alkaline Phosphatase 106 U/L (39-117); Anion Gap 12 (12-20); Aspartate Amino Transferase 26 U/L (5-31); Blood Urea Nitrogen 14 mg/dL (9-16); Calcium 9.6 mg/dL (8.4-10.2); Carbon Dioxide 29 mmol/L (22-29); Chloride 105 mmol/L (96-108); Cholesterol 200 mg/dL (<200); Estimated Glomerular Filt Rate > 60; HDL Cholesterol 58 mg/dL (>40); Iron 47 mcg/dL (30-160); Percent Iron Saturation 16 % (15-50); Potassium 3.6 mmol/L (3.3-5.1); Sodium 142 mmol/L (135-145); Total Iron Binding Capacity 300 mcg/dL (228-428); Total Protein 6.6 g/dL (6.5-8.0); Triglycerides 143 mg/dL (<150); Unsaturated Iron Binding 253 ug/dL
[2025-02-27 12:06] LABS: Folate 14.9 ng/mL (> or = 4.0); Vitamin B12 > 2000 pg/mL (200-900)
== END 2025-02-27 06:42 | disposition home or self-care (01) ==
LOC: HO.HMGCLDS 06:41
PROVIDERS: PCP Internal Medicine; Visit Provider Internal Medicine
DX: E11.9 Type 2 diabetes mellitus without complications (principal); D64.9 Anemia, unspecified; E55.9 Vitamin D deficiency, unspecified
CPT/HCPCS: 36415; 80053; 80061; 82043; 82306; 82570; 82607; 82746; 83540; 85025

== ENCOUNTER 2025-03-14 08:31 | Outpatient (AMB) | payer MEDICARE, SELFPAY ==
--- OUTSIDE RECORDS SUMMARY | 2025-03-09 14:15 | XMS_ITS | Encounter Summary ---
Author Organization [facility] Address [address] [place] [phone] Care Team Providers Care Diecast Machine Operator Name Role Phone Sandy Storm MD Primary Care Provider Reason for Visit * Reason Comments Consult [place] and callosities * Consultation (Routine) - Closed Specialty Diagnoses / Procedures Referred By Jo rivas Referred To Contact Podiatry / Orthopaedic Surgery Diagnoses Corns and callosities Sandy Storm MD [address] [place] [address] Phone: tel: fax: Adan Montano DPM [address] [phone] Phone: tel: fax: Referral ID Status Reason Start Date Expiration Date V isits Requested Visits Authorized [id number] Closed Specialty Services Required 02/13/2025 02/13/2026 1 1 Encounter Details Date Type Department Care Team (Late st Contact Info) Description 03/09/2025 2:15 PM EST Consult Orthopedic Surgery - [place] [address] [phone] Adan Montano DPM [address] [phone] Acquired hallux valgus of left foot (Primary Dx); Acquired hallux valgus of right foot; Hammer toe of left foot; Acquired hammer toe of right foot; Dermatophytosis of nail; Pain in toe of right foot; Pain in toe of left foot; Diabetic mononeuropathy simplex (CMS/HCC V24, CMS/HCC V28) Social History Tobacco Use Types Packs/Day Years Used Date Smoking Tobacco: Never Smokeless Tobacco: Never Alcohol Use Standard Drinks/Week Comments No 0 (1 standard drink = 0.6 oz pur e alcohol) Comments Unknown Sex and Gender Information Value Date Recorded Sex Assigned at Not on file Legal Sex Female 5:34 PM EST Gender Identity Not on file Sexual Orientation Not on file documented as of this encounter Progress Notes * Adan Montano DPM - 03/09/2025 2:15 PM EST Images from the original note were not included. * Adan Montano DPM - 03/09/2025 2:15 PM EST Last PCP visit:Referring MD: Sandy Storm MD 02/09/2025 IDENTIFIER: Bhupinder is a 69 y.o. year old female who presents for consultation. CC: Foot pain HPI: Bhupinder is a 69 y.o. year old female presents complaining of chronic pain discomfort between her feet she notes she is getting bunions that are rubbing against her second toes are causing lots of painmake it difficult for her to walk pain discomfort is 7 out of 10 visual analog scale she reports she also has very long and painful thick nails to type II diabetic endorse occasional numbness and tingling to her feet ROS: GENERAL: Pt denies nausea, fever, vomiting, chills, or shortness of breath. Pt in NAD. CARDIOLOGY: pt denies chest pain, palpitations LUNGS: pt denies shortness of breath MUSCULOSKELETAL: See HPI, otherwise no joint pain or swelling, back pain, or muscle pain. SKIN: see HPI, otherwise no lesions, rash or itching NEURO: No persistent headache, weakness or numbness The remainder of the review of systems is noncontributory PAST MEDICAL HISTORY: Problem List[1] SOCIAL HISTORY: Social History Tobacco Use Smoking status: Never Smokeless tobacco: Never Substance Use Topics Alcohol use: No ACTIVE MEDICATIONS: Medications Taking[2] ALLERGIES: Allergies[3] PHYSICAL EXAM: Visit Vitals Smoking Status Never PODIATRIC EXAMINATION: GENERAL: Patient appears well nourished, with NAD. VASCULAR: Dorsalis pedis pulses are 2/4 bilaterally and Posterior tibial pulses are 2/4 bilaterally. Capillary filling time within normal limits the digits. No pallor on elevation or rubor on dependency. No varicosities. Denies rest pain or claudication pain. NEUROLOGICAL: Sharp/dull sensation intact, protective sensation intact 10/10 with Ipswitch touch test bilaterally, vibratory sensation intact to the tibial tuberosity. ORTHOPEDIC: Good muscle strength 5/5 of all flexors and extensors. Dorsi flexion of ankle ,10 degrees, plantar flexion WNL. No muscle atrophy. DERMATOLOGICAL:. Toenails: Left Toenail(s) 1-5: subungual debris, discoloration, hypertrophic, elongation, mycotic appearance, onychomycosis, pain and thickening. Right Toenail(s) 1-5: subungual debris, discoloration, hypertrophic, elongation, mycotic appearance, onychomycosis, pain and thickening. Annular scaling bilateral feet moccasin distribution Skin thinning texture shiny appearance diffuse hyperpigmentation bilaterally pedal hair decreased Hyperkeratotic tissue PIP joint of the second toe overlapping the great toe bilateral BIOMECHANICS: Ankle ROM WNL, STJ ROM wnl, MTJ ROM wnl, 1st MPJ ROM track bound bunion deformity bilateral hammertoe contractures 2 through 5 bilateral. IMAGING: IMPRESSION: 1. Acquired hallux valgus of left foot 2. Acquired hallux valgus of right foot 3. Hammer toe of left foot 4. Acquired hammer toe of right foot 5. Dermatophytosis of nail 6. Pain in toe of right foot 7. Pain in toe of left foot 8. Diabetic mononeuropathy simplex ([facility] V24, [facility] V28) PLAN: Pt was seen and examined, history reviewed. Discussed with patient regarding proper glucose control, exercise, and diet. Explained to patient proper shoe gear, and importance of daily foot checks. I reviewed neuropathy and why it occurs in diabetics. I educated the patient on proper blood sugar control and the importance of an HgBA1c of less than 7.0%. I reviewed the signs and symptoms of neuropathy with the patient During today???s visit we discussed at great length the etiology, prognosis, and treatment options for the patient???s condition. Risks and benefits of operative and non operative treatment options were discussed. Treatment options for double osteotomy bunionectomy hammertoe correction left foot correction were discussed, non-operative treatment would involve tapping, strapping, adjustments in shoe gear, orthotics insoles, rest, bracing and edema control. There is potential for the deformities to stabilize without surgery yet there may still be a need for delayed surgery and distructive procedures. There is potential for non-union with surgery and non-operative care would avoid incision problems and anesthesia risks. Surgery has added risks including but not limited to infection, incision pain, neuritis or numbness nerve trauma (damage transection of nerve) re-occurrence of deformity weakening of structure or tendon, scar tissue contracture, worsening of deformity and loss of limb or life from DVT and . double osteotomy bunionectomy hammertoe correction left foot healing was discussed in relation to operative treatment. Recovery and post operative immobilization was discussed based on the various treatment options. Weight bearing status: NWB x 2 weeks followed by progressive WB x 10 weeks in a below the knee boot. Work&Activity restrictions: Impact of undergoing surgery to work and daily activity was discussed today X-ray ordered both feet 3 views Debridement of mycotic toenails 6-10: Verbal informed consent was obtained from the patient. Greater than 6 nails were aseptically debrided in thickness and length with nail nippers Adan Montano DPM [1] There is no problem list on file for this patient. [2] Outpatient Medications Marked as Taking for the 03/09/25 encounter (Consult) with Adan Montano DPM Medication Sig Dispense Refill BIOTIN ORAL Take by mouth. cholecalciferol (VITAMIN D-3) 25 mcg (1,000 unit) tablet Take 1 tablet (1,000 Units total) by mouth1 (one) time each day. cyanocobalamin, vitamin B-12, (VITAMIN B-12 ORAL) Take by mouth. multivitamin with minerals tablet Take 1 tablet by mouth 1 (one) time each day. omeprazole (PriLOSEC) [address] capsule TAKE 1 CAPSULE BY MOUTH TWICE A DAY 180 capsule 5 sucralfate (CARAFATE) 100 mg/mL suspension TAKE 10 ML (1 G TOTAL) BY MOUTH 1 (ONE) TIME EACH DAY INTHE EVENING. TAKE 1 HOUR BEFORE MEALS AND AT BEDTIME 900 mL 2 upadacitinib (Rinvoq) 30 mg tablet extended release 24 hr TAKE 1 TABLET BY MOUTH EVERY DAY 30 tablet 3 [3] Allergies Allergen Reactions Apple Other Reaction(s): face/tongue swelling [place] Other Reaction(s): face/tongue swelling Tree Nuts documented in this encounter Plan of Treatment Upcoming Encounters Date Type Department Care Team (Late st Contact Info) Description 05/10/2025 2:00 PM EST Office Visit Orthopedic Surgery - [place] [address] [phone] Adan Montano DPM [address] [phone] documented as of this encounter Visit Diagnoses Diagnosis Acquired hallux valgus of left foot- Primary Acquired hallux valgus of right foot Hammer toe of left foot Acquired hammer toe of right foot Dermatophytosis of nail Pain in toe of right foot Pain in soft tissues of limb Pain in toe of left foot Pain in soft tissues of limb Diabetic mononeuropathy simplex (CMS/HCC V24, CMS/HCC V28) Type II or unspecified type diabetes mellitus with neurological manifestations, not stated as uncontrolled documented in this encounter Orders Outpatient Referral Count Last Ordered Date Ordered Date AMB REFERRAL TO PODIATRY 1 03/09/2025 documented in this encounter Care Teams Diecast Machine Operator Relationship Specialty Start Date End Date Sandy Storm MD [address] [place] [phone] PCP - General Internal Medicine 05/24/18 documented as of this encounter
--- NOTE | 2025-03-14 08:32 | MHC.PC.OV ---
Vital Signs 03/14/25 08:33 Height 5 ft Weight 158 lb BMI 30.9 BP 118/70 Blood Pressure Location Lt brachial Position Sitting Respiration 16 Pulse 65 Pulse Source Pulse Oximeter Pulse Oximetry (%) 97 Oxygen Delivery Method Room Air Intake Visit Reasons: 3 months f/up Intake Note: Pt is here today for 3 months follow up visit. Allergies No Known Allergies (No Known Allergies*) Allergy (Verified 03/14/25 08:34) Medication List - Last Reconciled 03/14/25 by Sandy Storm MD albuterol sulfate 90 mcg/actuation 2 puffs inhalation Q6H PRN albuterol sulfate 1.25 mg (3 mL) inhalation QID PRN alendronate (Fosamax) 70 mg PO QWEEK biotin 10 mg PO DAILY blood sugar diagnostic (Standard Treasuryuch Ultra Test strips) 1 qd blood-glucose meter (Standard Treasuryuch Ultra2 Meter) As directed Breo Ellipta 200-25 mcg/dose (fluticasone furoate-vilanterol) 1 ea inhalation DAILY NS cholecalciferol (vitamin D3) 50 mcg PO DAILY estradiol 0.01%(0.1mg/gram) 1 appful vaginal DAILY furosemide (Lasix) 20 mg PO DAILY mecobalamin (vitamin B12) 1,000 mcg PO DAILY montelukast 10 mg PO DAILY nebulizers For updraft treatments 4 times per day omeprazole 20 mg PO BID upadacitinib ER (Rinvoq) 30 mg PO DAILY Tobacco use date assessed: 03/14/25 Fall risk assessment: No Falls in past year Last assessed Fall Risk: 03/14/25 Dental Screening Dental Screen Date: 02/09/25 HPI 3 months f/up HPI Details Patient presents for the follow-up chronic asthma controlled on Breo, osteoporosis, chronic GERD after and also colitis controlled on Rinvoq. ON LICENSE OF [facility] Medical History (Updated 03/14/25 @ 20:03 by Sandy Storm MD) Hyperglycemia Osteoporosis Edema Asthma Vitamin D deficiency Callus between toes [place] (dyspnea on exertion) GERD (gastroesophageal reflux disease) Ulcerative colitis Skin cancer Chronic back pain Annual physical exam Surgical History S/P knee replacement H/O colonoscopy Family History Father No problems noted. Mother Diabetes Social History Housing: House Patient Tobacco Use Status: Never used Tobacco e-Cigarette/Vaping Use: Never Used service: No Current occupational status: retired Cognitive needs: No Hearing needs: No Vision needs: Yes Questionnaire Thrive Questionnaire Date Thrive assessed: 09/16/24 I am a: Patient What is your living situation today?: I have a steady place to live Within the past 12 months, did the food you bought not last and you didn't have the money to get more?: I choose not to answer this question Within the past 12 months, did you worry whether your food would run out before you got money to buy more?: I choose not to answer this question Do you have trouble paying for medicines?: I choose not to answer this question Do you have trouble getting transportation to medical appointments?: I choose not to answer this question Do you have trouble paying your heating and electricity bill?: I choose not to answer this question Do you have trouble taking care of your child, family member or friend?: I choose not to answer this question Do you have trouble with day-to-day activities such as bathing, preparing meals, shopping, managing finances, etc.?: I choose not to answer this question Are you currently unemployed and looking for a job?: I choose not to answer this question Are you interested in more education?: I choose not to answer this question Please select the resources that you would like help with: None Currently or been in a relationship where the following occur: I choose not to answer THRIVE Score: 0 MAJO-7 AMB Questionnaire MAJO-7 Date MAJO - 7 assessed: 09/16/24 Source: Developed by Drs. Wicho Mendez, Tessa Dukes, Tim Aburto and colleagues, with an educational hermilo from [employer]. Review of Systems Const All systems reviewed & are unremarkable except as noted in HPI and below Eyes Reports no additional complaints ENT Reports no additional complaints Card Reports no additional complaints Resp Reports no additional complaints GI Reports no additional complaints Reports no additional complaints Physical exam (Primary Care) Vital Signs: Last Vital Signs Pulse 65 03/14/25 08:33 Resp 16 03/14/25 08:33 BP 118/70 03/14/25 08:33 Pulse Ox 97 03/14/25 08:33 Oxygen Delivery Method Room Air 03/14/25 08:33 BMI result Body Mass Index 30.9 Tobacco/Smoking Status: Tobacco use Status Tobacco use date assessed 03/14/25 03/14/25 08:38 Patient Tobacco Use Status Never used Tobacco 03/14/25 08:38 e-Cigarette/Vaping Use Never Used 03/14/25 08:38 Thrive Assessment: Date of Thrive Assessment Date Thrive assessed 09/16/24 03/14/25 08:38 Currently or been in a relationship where the following occur: I choose not to answer Const General: no acute distress HENMT General nose exam: Normal external nose present Throat: Yes posterior oropharynx normal Eyes General: appearance normal, both eyes and all related structures Neck Neck: Yes supple Resp Effort & Inspection: normal respiratory effort Auscultation: clear to auscultation bilaterally Cardio Rhythm: regular rhythm Heart sounds: S1 normal heart sound present and S2 normal heart sound present GI Inspection: Yes normal to inspection Palpation (GI): Soft to palpation Percussion: Yes normal to percussion Coding Level of Care Code Est Pt Level 4 (39272) Diagnoses Hyperglycemia R73.9 Osteoporosis M81.0 Ulcerative colitis K51.90 Asthma J45.909 Assessment & Plan Assessment & Plan (1) Hyperglycemia: Comment: A1c 7.3 09/2024, 6.1, 02/2025 Code(s): R73.9 - Hyperglycemia, unspecified Category: Medical Plan: Continue ADA diet increase physical activity follow-up in 3 months with a fasting labs before (2) Osteoporosis: Comment: DEXA 01/2023 T score -2.6 femoral neck, Fosamax started Code(s): M81.0 - Age-related osteoporosis without current pathological fracture Category: Medical Plan: Continue Fosamax vitamin D3 weight-bearing exercises and repeat DEXA next year (3) Ulcerative colitis: Comment: on Rinvoq, f/u Code(s): K51.90 - Ulcerative colitis, unspecified, without complications Category: Medical Plan: Follow-up with the GI (4) Asthma: Code(s): J45.909 - Unspecified asthma, uncomplicated Category: Medical Plan: Continue Breo Ellipta Orders: Orders Comprehensive Orange. Panel Fast 3 Months E55.9 - Vitamin D deficiency, unspecified, M81.0 - Age-related osteoporosis without current pathological fracture, R73.9 - Hyperglycemia, unspecified Microalbumin, Random (w Creat) 3 Months E55.9 - Vitamin D deficiency, unspecified, M81.0 - Age-related osteoporosis without current pathological fracture, R73.9 - Hyperglycemia, unspecified Hemoglobin A1c 3 Months E55.9 - Vitamin D deficiency, unspecified, M81.0 - Age-related osteoporosis without current pathological fracture, R73.9 - Hyperglycemia, unspecified Complete Blood Count Auto Diff 3 Months E55.9 - Vitamin D deficiency, unspecified, M81.0 - Age-related osteoporosis without current pathological fracture, R73.9 - Hyperglycemia, unspecified Lipid Panel 3 Months E55.9 - Vitamin D deficiency, unspecified, M81.0 - Age-related osteoporosis without current pathological fracture, R73.9 - Hyperglycemia, unspecified Vitamin D 25-OH Total 3 Months E55.9 - Vitamin D deficiency, unspecified, M81.0 - Age-related osteoporosis without current pathological fracture, R73.9 - Hyperglycemia, unspecified
[2025-03-14 08:33] VITALS: BP 118/70; PULSE 65; RESP 16; O2SAT 97; BMI 30.9
--- OUTSIDE RECORDS SUMMARY | 2025-03-14 09:03 | XMS_ITS | Clinical Summary ---
Author Organization [facility] [address] [facility] Address [address] [place] [address] Phone Care Team Providers Care Oral And Maxillofacial Pathologist Name Role Phone Sandy Storm MD Primary Care Provider [phone] Allergies Active Allergy Reactions Criticality Noted Date Comments Apple 02/14/2025 Other Reaction(s): face/tongue swelling [place] 02/14/2025 Other Reaction(s): face/tongue swelling Tree Nuts 02/14/2025 Medications omeprazole (PriLOSEC) [address] capsuleIndication [...] day. Active BIOTIN ORAL Take by mouth. Active cholecalciferol (VITAMIN D-3) 25 mcg (1,000 unit) tablet Take 1 tablet (1,000 Units total) by mouth 1 (one) time each day. Active Encounters Date Type Department Care Team Description 03/09/2025 2:15 PM EST Consult Orthopedic Surgery - [place] [address] [facility] [address] [place] [id number] Adan Montano, DIONNEM Acquired hallux valgus of left foot (Primary Dx); Acquired hallux valgus of right foot; Hammer toe of left foot; Acquired hammer toe of right foot; Dermatophytosis of nail; Pain in toe of right foot; Pain in toe of left foot; Diabetic mononeuropathy simplex ([facility] V24, [facility] V28) 02/14/2025 3:40 PM EST Office Visit Gastroenterology - [address] [facility] [address] [facility] [address] [place] [phone] Sandy Mcdowell MD Gastroesophageal reflux disease without esophagitis (Primary Dx); Ulcerative pancolitis without complication ([facility] V24, [facility] V28) from Last 3 Months [...] History Medical History Date Comments Ulcerative colitis ([facility] V24, [facility] V28) inital diagnosis GERD (gastroesophageal [...] on file Sexual Orientation Not on file Last Filed Vital Signs Vital Sign Reading [...] PM EST Office Visit Orthopedic Surgery - [place] [address] [address] Adan Montano, ROSALINE [address] [phone] Health Maintenance Due Date Last Done Comments Breast Cancer Screening 1955 Colorectal Cancer Screening: Colonoscopy 1955 Diabetes: Annual Foot Exam 06/13/1965 Diabetes: Annual Retina Eye Exam 06/13/1965 DTaP,Tdap,and Td Vaccines (1 - Tdap) 06/13/1974 Pneumococcal Vaccine: 50+ Ye ars (1 of 2 - PCV) 06/13/1974 RSV Immunization Adult Patie nts (1 - Risk 50-74 years 1-dose series) 06/13/2005 Zoster Vaccines (1 of 2) 06/13/2005 Cholesterol Screening (Lipid Panel) 03/01/2022 Falls Risk Assessment 03/01/2022 Hepatitis C Screening 03/01/2022 Medicare Annual Wellness Visit 03/01/2022 Osteoporosis Screening (Bone Density Screening) 03/01/2022 Social Influencers of Health Screening 03/01/2022 Depression Screening 03/30/2024 COVID-19 Vaccine (1 - 2024-2 6 season) 2024 Influenza Vaccine (#1) 2024 Diabetes: Annual Urine Albumin-Creatinine Ratio (uACR) 03/09/2025 Diabetes: Blood Sugar Contro l Test (HGBA1C) 03/09/2025 Diabetes: Annual GFR (Glomer ular Filtration Rate) 08/09/2025 08/09/2024 HIB Vaccines Aged Out No longer eligi [...] Procedure Name Priority Date/Time Associated Diagnosis Comments COMPREHENSIVE METABOLIC PANEL Routine 08/09/2024 3:54 PM EDT Ulcerative pancolitis without complication ([facility] V24, [facility] V28) from Last 3 Months or Most Recently Relevant to Health Maintenance Results * (ABNORMAL) Comprehensive metabolic panel (08/09/2024 3:54 PM EDT) Sodium 140 133 - 145 mmol/L LAB CHEMISTRY METHOD 08/09/2024 5:29 PM [facility] Potassium 4.2 3.5 - 5.5 mmol/L LAB CHEMISTRY METHOD 08/09/2024 5:29 PM [facility] Chloride 105 96 - 110 mmol/L LAB CHEMISTRY METHOD 08/09/2024 5:29 PM [facility] CO2 30 21 - 32 mmol/L LAB CHEMISTRY METHOD 08/09/2024 5:29 PM [facility] Anion Gap 5 3 - 11 LAB CHEMISTRY METHOD 08/09/2024 5:29 PM [facility] Glucose 132(H) 70 - 100 mg/dL LAB CHEMISTRY METHOD 08/09/2024 5:29 PM [facility] BUN 12 5 - 25 mg/dL LAB CHEMISTRY METHOD 08/09/2024 5:29 PM [facility] Creatinine 0.73 0.50 - 1.10 mg/dL LAB CHEMISTRY METHOD 08/09/2024 5:[address] [facility] eGFR 89 >=60 mL/min/1. 73m2 LAB CHEMISTRY METHOD 08/09/2024 5:29 PM [facility] Comment:Calculation based on the Chronic Kidney Disease Epidemiology Collaboration (CKD-EPI) equation refit without adjustment for race. BUN/Creatinine Ratio 16.4 LAB CHEMISTRY METHOD 08/09/2024 5:[address] [facility] Calcium 8.7 8.5 - 10.5 mg/dL LAB CHEMISTRY METHOD 08/09/2024 5:29 PM [facility] AST (SGOT) 22 10 - 42 unit/L LAB CHEMISTRY METHOD 08/09/2024 5:29 PM [facility] ALT (SGPT) 36 10 - 60 unit/L LAB CHEMISTRY METHOD 08/09/2024 5:29 PM [facility] Alkaline Phosphatase 122(H) 42 - 121 unit/L LAB CHEMISTRY METHOD 08/09/2024 5:29 PM [facility] Total Protein 6.1 6.0 - 8.0 g/dL LAB CHEMISTRY METHOD 08/09/2024 5:29 PM [facility] Albumin 3.3 3.2 - 5.0 g/dL LAB CHEMISTRY METHOD 08/09/2024 5:29 PM [facility] Total Bilirubin 0.2 0.0 - 1.4 mg/dL LAB CHEMISTRY METHOD 08/09/2024 5:29 PM [facility] Blood Venous blood specimen / Unknown Venipuncture / Unknown 08/09/2024 3:54 PM EDT 08/09/2024 4:10 PM EDT us Sandy Mcdowell MD LAB BLOOD ORDERABLES Final Res ult [facility] [address] [place] [address], from Last 3 Months or Most Recently Relevant to Health Maintenance Insurance MEDICA[place] [employer] MEDIC[place]VANTAGE Care Teams Oral And Maxillofacial Pathologist Relationship Specialty Start Date End Date Sandy Storm MD [address] [place] [address] PCP - General Internal Medicine 05/24/18
--- OUTSIDE RECORDS SUMMARY | 2025-03-14 09:03 | XMS_ITS | Patient Health Record ---
Author Organization [facility] Address [address] [place] [address] Care Team Providers Care Ob/Gyn Name Role Phone AIDAN PLUMMER MD Primary Care Provider ERIC Barnhart Unavailable [phone] Reason For Referral No Information Medications Medication SIG (Take, Route, Frequency, Duration) Notes Start Date End Date Status Flovent HFA 110 MCG/ACT Aerosol 2 puff(s) inhaled 2 times a day PRN 10/25/2013 Active Omeprazole 20 MG Capsule Delayed Release 1 cap(s) orally BID 10/04/2012 Active Vickie-D Allergy & Congestion 60-120 MG Tablet Extended Release 12 Hour 1 tab(s) orally prn 10/19/2006 Active Multivitamin 1 TAB(S) ORALLY ONCE DAILY NAME ONLY Conversion from Multum Review and pick correct strength-formulatio n from [employer] options. If intended option is not shown, discontinue and re-order from Quick Search. 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 alcohol use: no drug use: no Coffee/Tea/Soda: yes Soda; 1 daily I tri tea during summer No coffee Marital Status Living with smokers in household no Problems Problem Type SNOMED Code ICD Code Onset Dates Problem Status W/U Status Risk Notes Problem Asthma (866117735) Asthma (493.90) Active confi rmed Problem Exacerbation of asthma (645583438) Asthma with acute exacerbation (493.92) Active confirmed Low Problem Gastroesophageal reflux disease (disorder) (297404166) GERD [Gastroesophageal reflux disease] (530.81) Active confirmed Problem Lateral epicondylitis (305942646) Lateral epicondylitis (726.32) Active confirmed Problem Pain in limb (07334020) Pain in limb (729.5) Active confirmed Problem Heartburn (32077233) Heartburn (787.1) Active confirmed Problem Medication monitoring (824471204) Medication monitoring (V58.69) Active confirmed Problem Osteoarthritis (876989613) osteoarthritis (715.90) Active confirmed Problem Medication monitoring (482882136) Medication monitoring encounter (Z51.81) Active confirmed Problem Osteoarthritis of knee (653611635) Primary osteoarthritis of both knees (M17.0) Active confirmed Problem Osteoarthritis of knee (180698312) Primary osteoarthritis of right knee (M17.11) Active confirmed Plan Of Treatment No Information Insurance Providers Payer Name Payer Address Payer Phone Subscriber Number Group Number Insured Name Patient Relationship to Insured Coverage Start Date Coverage End Date [facility] [address] [address] [place] [address] [id number] PERCY MARSH Self - patient is the insured Medical (General) History Medical History History ICD Code GERD-EGD08/04/11-Trace antral streaky eryt [id number] COlon08/04/11single tic-REc [id number] er-[id number] asthma/allergies Surgical History Surgery Date(Month/Year) hysterectomy has ovaries Hospitalization History Reason Date(Month/Year) [facility]-Nephrolithiasis with mild left-sided hydronephrosis 05/03/2016
== END 2025-03-14 16:12 | disposition home or self-care (01) ==
LOC: HO.HMCC 08:31
PROVIDERS: PCP Internal Medicine; Visit Provider Internal Medicine
DX: R73.9 Hyperglycemia, unspecified (principal); M81.0 Age-related osteoporosis without current pathological fracture; K51.90 Ulcerative colitis, unspecified, without complications; J45.909 Unspecified asthma, uncomplicated

== ENCOUNTER → 2025-03-14 08:31 | Outpatient (BNVA) | payer MEDICARE, SELFPAY | PROVIDERS: PCP Internal Medicine; Visit Provider Internal Medicine | DX: M81.0 Age-related osteoporosis without current pathological fracture (principal); R73.9 Hyperglycemia, unspecified; K51.90 Ulcerative colitis, unspecified, without complications; J45.909 Unspecified asthma, uncomplicated | CPT/HCPCS: 99212 ==